=== PATIENT | female | born 1995 | race Hispanic/Latino ===

== ENCOUNTER 2017-11-04 10:31 | Emergency (ER) | payer MEDICAID ==
[2017-11-04 11:11] LABS: HCG,QUAL RESULT NEGATIVE (NEGATIVE)
[2017-11-04 11:13] LABS: APPEARANCE,URINE Clear (CLEAR); BILIRUBIN,URINE Negative (NEGATIVE); COLOR,URINE Yellow (YELLOW); GLUCOSE, URINE (UA) Negative (NEGATIVE); KETONES,URINE Negative (NEGATIVE); LEUKOCYTE ESTERASE ,URINE Moderate (NEGATIVE); NITRATE,URINE Negative (NEGATIVE); OCCULT BLOOD,URINE Trace (NEGATIVE); PROTEIN,URINE Negative (NEGATIVE); UROBILINOGEN,URINE 0.2 mg/dL (0.2-1.0)
[2017-11-04 11:20] LABS: BACTERIA,URINE Rare /HPF (None Seen); RBC,URINE 0-1 /HPF (0-1); SQUAMOUS EPITHELIAL CELL,UR Rare /HPF (0-2)
[2017-11-04] MEDS ORDERED: PHENAZOPYRIDINE HCL 200 MG TABLET ONE (11:52)
== END 2017-11-04 12:03 | disposition home or self-care (01) ==
LOC: EDH 10:31
DX: N39.0 Urinary tract infection, site not specified (principal); R30.0 Dysuria
CPT/HCPCS: 81001; 81025; 87088; 87186

== ENCOUNTER 2018-01-11 10:49 | Emergency (ER) | payer MEDICAID ==
[2018-01-11 11:23] LABS: APPEARANCE,URINE CLEAR (CLEAR); BILIRUBIN,URINE NEGATIVE (NEGATIVE); COLOR,URINE YELLOW (YELLOW); GLUCOSE, URINE (UA) NEGATIVE (NEGATIVE); KETONES,URINE 40 mg/dL (NEGATIVE); LEUKOCYTE ESTERASE ,URINE SMALL (NEGATIVE); NITRATE,URINE NEGATIVE (NEGATIVE); OCCULT BLOOD,URINE TRACE-INTACT (NEGATIVE); PH,URINE 5.5 (5.0-8.0); PROTEIN,URINE TRACE (NEGATIVE); UROBILINOGEN,URINE 0.2 mg/dL (0.2-1.0)
[2018-01-11 11:26] LABS: HCG,QUAL RESULT NEGATIVE (NEGATIVE)
[2018-01-11 11:33] LABS: RBC,URINE 0-1 /HPF (0-1); WBC,URINE 26-50 /HPF (0-1)
[2018-01-11 11:34] LABS: BACTERIA,URINE Moderate /HPF (None Seen)
== END 2018-01-11 11:52 | disposition home or self-care (01) ==
LOC: EDH 10:49
DX: N39.0 Urinary tract infection, site not specified (principal)
CPT/HCPCS: 81001; 81025; 87088; 87186

== ENCOUNTER 2018-07-31 12:47 | Emergency (ER) | payer MEDICAID ==
[2018-07-31] MEDS ORDERED: IBUPROFEN 600 MG TABLET ONE (14:31)
[2018-07-31] MEDS ORDERED: PHENAZOPYRIDINE HCL 200 MG TABLET ONE (14:31)
[2018-07-31 14:53] LABS: BILIRUBIN,URINE Negative (NEGATIVE); COLOR,URINE Yellow (YELLOW); GLUCOSE, URINE (UA) Negative (NEGATIVE); HCG,QUAL RESULT NEGATIVE (NEGATIVE); KETONES,URINE Negative (NEGATIVE); LEUKOCYTE ESTERASE ,URINE Large (NEGATIVE); NITRATE,URINE Negative (NEGATIVE); OCCULT BLOOD,URINE Moderate (NEGATIVE); PH,URINE 6.5 (5.0-8.0); PROTEIN,URINE Negative (NEGATIVE); UROBILINOGEN,URINE 0.2 mg/dL (0.2-1.0)
[2018-07-31 14:54] LABS: APPEARANCE,URINE Cloudy (CLEAR)
[2018-07-31 15:07] LABS: BACTERIA,URINE Rare /HPF (None Seen); RBC,URINE 26-50 /HPF (0-1); WBC,URINE 51-100 /HPF (0-1)
[2018-07-31 15:08] LABS: MUCUS,URINE Moderate LPF (None Seen)
== END 2018-07-31 15:20 | disposition home or self-care (01) ==
LOC: EDH 12:47
DX: N30.00 Acute cystitis without hematuria (principal)
CPT/HCPCS: 81001; 81025

== ENCOUNTER 2019-01-19 10:12 | Emergency (ER) | payer MEDICAID ==
[2019-01-19 10:43] LABS: APPEARANCE,URINE Clear (CLEAR); BILIRUBIN,URINE Negative (NEGATIVE); COLOR,URINE Yellow (YELLOW); GLUCOSE, URINE (UA) Negative (NEGATIVE); KETONES,URINE Negative (NEGATIVE); LEUKOCYTE ESTERASE ,URINE Negative (NEGATIVE); NITRATE,URINE Negative (NEGATIVE); OCCULT BLOOD,URINE Small (NEGATIVE); PROTEIN,URINE Negative (NEGATIVE); UROBILINOGEN,URINE 0.2 mg/dL (0.2-1.0)
[2019-01-19 10:47] LABS: HCG,QUAL RESULT NEGATIVE (NEGATIVE)
[2019-01-19 11:04] LABS: BACTERIA,URINE Few /HPF (None Seen); RBC,URINE 0-1 /HPF (0-1); WBC,URINE 0-1 /HPF (0-1)
== END 2019-01-19 11:17 | disposition home or self-care (01) ==
LOC: EDH 10:12
DX: N92.6 Irregular menstruation, unspecified (principal); Z72.0 Tobacco use
CPT/HCPCS: 81001; 81025

== ENCOUNTER 2019-10-01 19:41 | Emergency (ER) | payer MEDICAID | END 2019-10-01 20:35 | disposition home or self-care (01) | LOC: EDH 19:41 | DX: F41.1 Generalized anxiety disorder (principal) | CPT/HCPCS: 99281 ==

== ENCOUNTER 2019-11-28 18:05 | Emergency (ER) | payer MEDICAID ==
[2019-11-28 18:28] LABS: APPEARANCE,URINE Cloudy (CLEAR); BILIRUBIN,URINE Negative (NEGATIVE); COLOR,URINE Yellow (YELLOW); GLUCOSE, URINE (UA) Negative (NEGATIVE); KETONES,URINE Negative (NEGATIVE); LEUKOCYTE ESTERASE ,URINE Trace (NEGATIVE); NITRATE,URINE Negative (NEGATIVE); OCCULT BLOOD,URINE Negative (NEGATIVE); PH,URINE 6.5 (5.0-8.0); PROTEIN,URINE Negative (NEGATIVE)
[2019-11-28 18:30] LABS: HCG,QUAL RESULT NEGATIVE (NEGATIVE)
[2019-11-28 18:36] LABS: RBC,URINE 0-1 /HPF (0-1)
[2019-11-28 18:37] LABS: BACTERIA,URINE Few /HPF (None Seen); MUCUS,URINE Few LPF (None Seen); SQUAMOUS EPITHELIAL CELL,UR Moderate /HPF (0-2)
== END 2019-11-28 18:57 | disposition home or self-care (01) ==
LOC: EDH 18:05
DX: N39.0 Urinary tract infection, site not specified (principal); B37.3 Candidiasis of vulva and vagina
CPT/HCPCS: 81001; 81025

== ENCOUNTER 2020-01-31 16:17 | Emergency (ER) | payer MEDICAID | END 2020-01-31 19:37 | disposition home or self-care (01) | LOC: EDH 16:17 | DX: Z11.3 Encounter for screening for infections with a predominantly sexual mode of transmission (principal); R35.0 Frequency of micturition; R30.9 Painful micturition, unspecified; R19.7 Diarrhea, unspecified; J02.9 Acute pharyngitis, unspecified; H92.01 Otalgia, right ear ==

== ENCOUNTER 2020-06-25 20:30 | Emergency (ER) | payer MEDICAID ==
[2020-06-25] MEDS ORDERED: KETOROLAC TROMETHAMINE 30MG/ML ONE (20:48)
[2020-06-25] MEDS ORDERED: ACETAMINOPHEN-CODEINE 300/30MG TAB ONE (20:48)
== END 2020-06-25 21:15 | disposition home or self-care (01) ==
LOC: EDH 20:30
DX: S00.432A Contusion of left ear, initial encounter (principal); Y08.89XA Assault by other specified means, initial encounter; Y93.89 Activity, other specified; Y92.89 Other specified places as the place of occurrence of the external cause; Y99.8 Other external cause status
CPT/HCPCS: 81025; 96372; 99283; J1885

== ENCOUNTER 2020-11-25 10:41 | Emergency (ER) | payer MEDICAID ==
[2020-11-25 11:02] LABS: APPEARANCE,URINE Clear (CLEAR); BILIRUBIN,URINE Negative (NEGATIVE); COLOR,URINE Yellow (YELLOW); GLUCOSE, URINE (UA) Negative (NEGATIVE); HCG,QUAL RESULT NEGATIVE (NEGATIVE); KETONES,URINE Negative (NEGATIVE); LEUKOCYTE ESTERASE ,URINE Negative (NEGATIVE); NITRATE,URINE Negative (NEGATIVE); OCCULT BLOOD,URINE Negative (NEGATIVE); PH,URINE 7.5 (5.0-8.0); PROTEIN,URINE Negative (NEGATIVE)
[2020-11-25 11:30] LABS: BASOPHILS % (AUTO) 0.5 % (0.0-5.0); EOSINOPHILS % (AUTO) 1.8 % (0.0-8.0); HEMATOCRIT 38.6 % (36-48); LYMPHOCYTES % (AUTO) 20.3 % (21.0-51.0); MEAN CORPUSCULAR HEMOGLOBIN 27.7 pg (27.0-33.0); MEAN CORPUSCULAR HGB CONC 31.9 g/dL (32.0-36.0); MEAN CORPUSCULAR VOLUME 86.9 fL (79-99); MONOCYTES % (AUTO) 6.5 % (3.0-13.0); NEUTROPHILS % (AUTO) 70.1 % (40.0-77.0); PLATELET COUNT (AUTO) 287 K/uL (130-400); RED BLOOD CELL COUNT(AUTO) 4.44 MIL/uL (4.00-5.50); RED CELL DISTRIBUTION WIDTH 14.6 % (11.0-15.5); WHITE BLOOD COUNT (AUTO) 7.9 K/uL (4.8-10.8)
[2020-11-25 11:43] LABS: ALBUMIN 3.6 g/dL (3.5-5.0); BILIRUBIN,TOTAL 0.1 mg/dL (0.2-1.0); CREATININE 0.6 mg/dL (0.5-1.5); POTASSIUM 3.8 mmol/L (3.5-5.1); TOTAL PROTEIN, SERUM 7.3 g/dL (6.0-8.3)
[2020-11-25 12:27] LABS: AMPHET/METH SCREEN,URINE NEGATIVE (NEGATIVE); BARBITURATE SCREEN, URINE NEGATIVE (NEGATIVE); BENZODIAZEPINES SCREEN,URINE NEGATIVE (NEGATIVE); CANNABINOID SCREEN,URINE POSITIVE (NEGATIVE); COCAINE SCREEN,URINE NEGATIVE (NEGATIVE); OPIATE SCREEN,URINE NEGATIVE (NEGATIVE); PHENCYCLIDINE SCREEN,URINE NEGATIVE (NEGATIVE)
== END 2020-11-25 12:34 | disposition home or self-care (01) ==
LOC: EDH 10:41
DX: R10.2 Pelvic and perineal pain (principal); F12.10 Cannabis abuse, uncomplicated; N92.1 Excessive and frequent menstruation with irregular cycle; E66.9 Obesity, unspecified; Z72.0 Tobacco use
CPT/HCPCS: 36415; 80053; 80305; 81003; 81025; 83690; 85025; 87486; 87797

== ENCOUNTER 2021-03-20 14:53 | Emergency (ER) | payer MEDICAID ==
[~2021-03-20] VITALS: Ht 144.8 cm; Wt 73.5 kg
[2021-03-20 14:55] VITALS: BP 128/72
[2021-03-20 15:26] LABS: BASOPHILS % (AUTO) 0.2 % (0.0-5.0); EOSINOPHILS % (AUTO) 1.7 % (0.0-8.0); HEMATOCRIT 42.9 % (36-48); MEAN CORPUSCULAR HEMOGLOBIN 28.1 pg (27.0-33.0); MEAN CORPUSCULAR HGB CONC 31.7 g/dL (32.0-36.0); MEAN CORPUSCULAR VOLUME 88.6 fL (79-99); MONOCYTES % (AUTO) 6.6 % (3.0-13.0); NEUTROPHILS % (AUTO) 69.1 % (40.0-77.0); PLATELET COUNT (AUTO) 274 K/uL (130-400); RED BLOOD CELL COUNT(AUTO) 4.84 MIL/uL (4.00-5.50); WHITE BLOOD COUNT (AUTO) 8.9 K/uL (4.8-10.8)
[2021-03-20 15:29] LABS: APPEARANCE,URINE Clear (CLEAR); BILIRUBIN,URINE Negative (NEGATIVE); COLOR,URINE Orange (YELLOW); GLUCOSE, URINE (UA) Negative (NEGATIVE); KETONES,URINE 15 mg/dL (NEGATIVE); LEUKOCYTE ESTERASE ,URINE Trace (NEGATIVE); NITRATE,URINE Negative (NEGATIVE); OCCULT BLOOD,URINE Large (NEGATIVE); PROTEIN,URINE POS 1+ mg/dL (NEGATIVE)
[2021-03-20 15:37] LABS: CREATININE 0.6 mg/dL (0.5-1.5); POTASSIUM 3.6 mmol/L (3.5-5.1)
[2021-03-20 15:42] LABS: ALBUMIN 3.8 g/dL (3.5-5.0); BILIRUBIN,TOTAL 0.3 mg/dL (0.2-1.0); TOTAL PROTEIN, SERUM 7.7 g/dL (6.0-8.3)
[2021-03-20] MEDS ORDERED: KETOROLAC 60 MG VIAL (30MG/ML) IM ONE (16:30)
[2021-03-20 16:48] LABS: RBC,URINE 51-100 /HPF (0-1)
[2021-03-20 16:49] LABS: BACTERIA,URINE Few /HPF (None Seen); SQUAMOUS EPITHELIAL CELL,UR 0-2 /HPF (0-2); WBC,URINE 0-1 /HPF (0-1)
[2021-03-20] MEDS ORDERED: ONDA4TAB10 PO (17:04)
[2021-03-20] MEDS ORDERED: DICY20TA2 PO (17:04)
== END 2021-03-20 17:15 | disposition home or self-care (01) ==
LOC: EDH 14:53
DX: K80.20 Calculus of gallbladder without cholecystitis without obstruction (principal); R10.31 Right lower quadrant pain; Z79.899 Other long term (current) drug therapy
CPT/HCPCS: 36415; 74176; 80053; 81001; 83690; 84703; 85025

== ENCOUNTER 2021-05-03 11:52 | Emergency (ER) | payer MEDICAID ==
[~2021-05-03] VITALS: Ht 144.8 cm; Wt 72.6 kg
[~2021-05-03 11:52] MED LIST: DICY20TA2 PO; ONDA4TAB10 PO
[2021-05-03] MEDS ORDERED: FAMOTIDINE 20MG TAB PO ONE (12:30)
[2021-05-03] MEDS ORDERED: DIPHENHYDRAMINE HCL 25 MG CAPSULE PO ONE (12:30)
[2021-05-03] MEDS ORDERED: SOLU-MEDROL 125MG VIAL IM ONE (12:30)
[2021-05-03 13:02] VITALS: BP 124/82
[2021-05-03] MEDS ORDERED: FAMO-136 PO (13:21)
[2021-05-03] MEDS ORDERED: PRED20TA3 PO (13:21)
[2021-05-03] MEDS ORDERED: CETI1SOL17 PO (13:21)
== END 2021-05-03 13:49 | disposition home or self-care (01) ==
LOC: EDH 11:52
DX: L50.9 Urticaria, unspecified (principal); Z88.6 Allergy status to analgesic agent; Z88.5 Allergy status to narcotic agent; Z79.899 Other long term (current) drug therapy; Z98.890 Other specified postprocedural states
CPT/HCPCS: 87880; 96372; 99283; J2930; Q0163

== ENCOUNTER 2021-08-24 14:22 | Emergency (ER) | payer MEDICAID ==
[~2021-08-24] VITALS: Ht 144.8 cm; Wt 68.0 kg
[~2021-08-24 14:22] MED LIST changes: +CETI1SOL17 PO; +FAMO-136 PO; +PRED20TA3 PO
[2021-08-24 15:01] LABS: INFLUENZA TYPE A NEGATIVE FOR TYPE A (NEG); INFLUENZA TYPE B NEGATIVE FOR TYPE B (NEG)
[2021-08-24] MEDS ORDERED: LORA10TA7 PO (15:11)
[2021-08-24] MEDS ORDERED: FLUT16H NASAL (15:11)
[2021-08-24] MEDS ORDERED: IBUP-2091 PO (15:11)
[2021-08-24 15:27] VITALS: BP 124/72
== END 2021-08-24 15:24 | disposition home or self-care (01) ==
LOC: EDH 14:22
DX: U07.1 COVID-19 (principal); E66.9 Obesity, unspecified; Z79.52 Long term (current) use of systemic steroids; Z88.5 Allergy status to narcotic agent; Z68.32 Body mass index [BMI] 32.0-32.9, adult
CPT/HCPCS: 87635; 87804 ×2; 87880; 99283; C9803

== ENCOUNTER 2021-10-15 06:37 | Emergency (ER) | payer MEDICAID ==
[~2021-10-15] VITALS: Ht 144.8 cm; Wt 69.4 kg
[~2021-10-15 06:37] MED LIST changes: +FLUT16H NASAL; +IBUP-2091 PO; +LORA10TA7 PO
[2021-10-15] MEDS ORDERED: HYDROXYZINE 25 MG TABLET PO SCH (07:00)
[2021-10-15] MEDS ORDERED: SOLU-MEDROL 125MG VIAL IM SCH (07:00)
[2021-10-15] MEDS ORDERED: LORATADINE 10 MG TABLET PO SCH (07:00)
[2021-10-15] MEDS ORDERED: METH4TAB3 PO (07:21)
[2021-10-15] MEDS ORDERED: HYD25 PO (07:21)
[2021-10-15 07:34] LABS: APPEARANCE,URINE Turbid (CLEAR); BILIRUBIN,URINE Negative (NEGATIVE); COLOR,URINE Yellow (YELLOW); GLUCOSE, URINE (UA) Negative (NEGATIVE); KETONES,URINE Negative (NEGATIVE); LEUKOCYTE ESTERASE ,URINE Trace (NEGATIVE); NITRATE,URINE Negative (NEGATIVE); OCCULT BLOOD,URINE Negative (NEGATIVE); PROTEIN,URINE Negative (NEGATIVE)
[2021-10-15 07:37] VITALS: BP 115/77
[2021-10-15 07:50] LABS: BACTERIA,URINE Few /HPF (None Seen); RBC,URINE 0-1 /HPF (0-1); WBC,URINE 0-1 /HPF (0-1)
[2021-10-15 07:51] LABS: AMORPHOUS SEDIMENT,UR Moderate /LPF (None Seen); SQUAMOUS EPITHELIAL CELL,UR Few /HPF (0-2)
== END 2021-10-15 08:17 | disposition home or self-care (01) ==
LOC: EDH 06:37
DX: L50.9 Urticaria, unspecified (principal); E66.9 Obesity, unspecified; Z79.1 Long term (current) use of non-steroidal anti-inflammatories (NSAID); Z79.52 Long term (current) use of systemic steroids; Z88.5 Allergy status to narcotic agent; Z68.33 Body mass index [BMI] 33.0-33.9, adult
CPT/HCPCS: 36415; 81001; 81025; 84703; 87486; 87797; 96372; 99283; J2930

== ENCOUNTER 2021-11-08 16:21 | Emergency (ER) | payer MEDICAID ==
[~2021-11-08] VITALS: Ht 144.8 cm; Wt 68.9 kg
[~2021-11-08 16:21] MED LIST changes: +HYD25 PO; +METH4TAB3 PO
[2021-11-08 16:22] VITALS: BP 110/73
[2021-11-08 16:43] LABS: APPEARANCE,URINE Cloudy (CLEAR); BILIRUBIN,URINE Negative (NEGATIVE); COLOR,URINE Dark Yellow (YELLOW); GLUCOSE, URINE (UA) Negative (NEGATIVE); KETONES,URINE Trace mg/dL (NEGATIVE); LEUKOCYTE ESTERASE ,URINE Small (NEGATIVE); NITRATE,URINE Negative (NEGATIVE); OCCULT BLOOD,URINE Negative (NEGATIVE); PH,URINE 7.5 (5.0-8.0); PROTEIN,URINE Trace mg/dL (NEGATIVE)
[2021-11-08 16:51] LABS: BACTERIA,URINE Few /HPF (None Seen); MUCUS,URINE Moderate LPF (None Seen); RBC,URINE 0-1 /HPF (0-1); SQUAMOUS EPITHELIAL CELL,UR Moderate /HPF (0-2)
[2021-11-08] MEDS ORDERED: 0.9%NACL 1000ML 1,000 ML IV ONE (16:55)
[2021-11-08] MEDS ORDERED: PROMETHAZINE HCL 25 MG/ML 1ML AMPULE IM ONE (17:00)
[2021-11-08] MEDS: 0.9%NACL 1000ML 1,000 ML IV SCH ×2 (17:08→17:28)
[2021-11-08] MEDS ORDERED: CEFTRIAXONE 1G VIAL IVP SCH (17:30)
[2021-11-08] MEDS ORDERED: ONDA4TAB10 PO (18:03)
[2021-11-08] MEDS ORDERED: CEPH500B PO (18:03)
[2021-11-08] MEDS ORDERED: PREN-61 PO (18:03)
== END 2021-11-08 18:13 | disposition home or self-care (01) ==
LOC: EDH 16:21
DX: O23.42 Unspecified infection of urinary tract in pregnancy, second trimester (principal); N39.0 Urinary tract infection, site not specified; O98.511 Other viral diseases complicating pregnancy, first trimester; B34.9 Viral infection, unspecified; I95.1 Orthostatic hypotension; E66.9 Obesity, unspecified; Z79.1 Long term (current) use of non-steroidal anti-inflammatories (NSAID); Z79.52 Long term (current) use of systemic steroids; Z88.5 Allergy status to narcotic agent; Z68.32 Body mass index [BMI] 32.0-32.9, adult; Z3A.01 Less than 8 weeks gestation of pregnancy
CPT/HCPCS: 36415; 81001; 84702; 87804 ×2; 96372; 96374; 99284; J0696; J2550; J7030

== ENCOUNTER 2021-12-07 17:02 | Emergency (ER) | payer MEDICAID ==
[~2021-12-07] VITALS: Ht 144.8 cm; Wt 68.9 kg
[~2021-12-07 17:02] MED LIST changes: +CEPH500B PO; +PREN-61 PO
[2021-12-07 17:03] VITALS: BP 129/80
[2021-12-07 17:40] LABS: BASOPHILS % (AUTO) 0.4 % (0.0-5.0); EOSINOPHILS % (AUTO) 1.1 % (0.0-8.0); HEMATOCRIT 37.3 % (36-48); LYMPHOCYTES % (AUTO) 31.5 % (21.0-51.0); MEAN CORPUSCULAR HEMOGLOBIN 27.6 pg (27.0-33.0); MEAN CORPUSCULAR HGB CONC 31.6 g/dL (32.0-36.0); MEAN CORPUSCULAR VOLUME 87.4 fL (79-99); MONOCYTES % (AUTO) 6.8 % (3.0-13.0); NEUTROPHILS % (AUTO) 59.7 % (40.0-77.0); PLATELET COUNT (AUTO) 329 K/uL (130-400); RED BLOOD CELL COUNT(AUTO) 4.27 MIL/uL (4.00-5.50); RED CELL DISTRIBUTION WIDTH 14.6 % (11.0-15.5)
[2021-12-07 17:53] LABS: CREATININE 0.7 mg/dL (0.5-1.5); POTASSIUM 3.6 mmol/L (3.5-5.1)
[2021-12-07 17:57] LABS: ALBUMIN 3.5 g/dL (3.5-5.0); BILIRUBIN,TOTAL 0.3 mg/dL (0.2-1.0); TOTAL PROTEIN, SERUM 7.1 g/dL (6.0-8.3)
[2021-12-07] MEDS ORDERED: ONDA-104 PO (18:21)
== END 2021-12-07 18:27 | disposition home or self-care (01) ==
LOC: EDH 17:02
DX: R11.0 Nausea (principal); Z32.02 Encounter for pregnancy test, result negative; E66.9 Obesity, unspecified; Z98.890 Other specified postprocedural states; Z88.5 Allergy status to narcotic agent; Z88.6 Allergy status to analgesic agent; Z79.899 Other long term (current) drug therapy
CPT/HCPCS: 36415; 80053; 84702; 85025

== ENCOUNTER 2022-01-31 18:14 | Emergency (ER) | payer MEDICAID ==
[~2022-01-31] VITALS: Ht 144.8 cm; Wt 69.9 kg
[~2022-01-31 18:14] MED LIST changes: +ONDA-104 PO
[2022-01-31 19:29] LABS: APPEARANCE,URINE Cloudy (CLEAR); BILIRUBIN,URINE Negative (NEGATIVE); COLOR,URINE Yellow (YELLOW); GLUCOSE, URINE (UA) Negative (NEGATIVE); KETONES,URINE Trace mg/dL (NEGATIVE); LEUKOCYTE ESTERASE ,URINE Trace (NEGATIVE); NITRATE,URINE Negative (NEGATIVE); OCCULT BLOOD,URINE Negative (NEGATIVE); PH,URINE 8.5 (5.0-8.0); PROTEIN,URINE POS 1+ mg/dL (NEGATIVE)
[2022-01-31 19:40] LABS: HCG,QUAL RESULT NEGATIVE (NEGATIVE)
[2022-01-31 19:51] VITALS: BP 124/68
[2022-01-31 19:54] LABS: RBC,URINE 0-1 /HPF (0-1)
[2022-01-31 19:55] LABS: BACTERIA,URINE Few /HPF (None Seen); MUCUS,URINE Moderate LPF (None Seen); SQUAMOUS EPITHELIAL CELL,UR Moderate /HPF (0-2)
== END 2022-01-31 20:01 | disposition home or self-care (01) ==
LOC: EDH 18:14
DX: R30.0 Dysuria (principal); Z88.6 Allergy status to analgesic agent; Z88.5 Allergy status to narcotic agent; Z79.899 Other long term (current) drug therapy; Z98.890 Other specified postprocedural states
CPT/HCPCS: 81001; 81025

== ENCOUNTER 2022-03-16 14:13 | Emergency (ER) | payer MEDICAID ==
[~2022-03-16] VITALS: Ht 144.8 cm; Wt 68.9 kg
[2022-03-16] MEDS ORDERED: IBUPROFEN 600 MG TABLET PO ONE (14:30)
[2022-03-16 15:53] LABS: APPEARANCE,URINE CLOUDY (CLEAR); BILIRUBIN,URINE NEGATIVE (NEGATIVE); COLOR,URINE YELLOW (YELLOW); GLUCOSE, URINE (UA) NEGATIVE (NEGATIVE); KETONES,URINE NEGATIVE (NEGATIVE); LEUKOCYTE ESTERASE ,URINE NEGATIVE (NEGATIVE); NITRATE,URINE NEGATIVE (NEGATIVE); OCCULT BLOOD,URINE MODERATE (NEGATIVE); PROTEIN,URINE NEGATIVE (NEGATIVE); UROBILINOGEN,URINE 0.2 mg/dL (0.2-1.0)
[2022-03-16 16:05] LABS: HCG,QUALITATIVE URINE NEGATIVE (NEGATIVE)
[2022-03-16] MEDS ORDERED: IBUP-2070 PO (16:25)
[2022-03-16 16:32] VITALS: BP 122/75
[2022-03-16 17:04] LABS: AMORPHOUS SEDIMENT,UR Moderate /LPF (None Seen); BACTERIA,URINE Few /HPF (None Seen); RBC,URINE 0-1 /HPF (0-1); SQUAMOUS EPITHELIAL CELL,UR Rare /HPF (0-2); WBC,URINE 0-1 /HPF (0-1)
== END 2022-03-16 16:31 | disposition home or self-care (01) ==
LOC: EDH 14:13
DX: J02.9 Acute pharyngitis, unspecified (principal); R50.9 Fever, unspecified; M79.10 Myalgia, unspecified site; Z20.822 Contact with and (suspected) exposure to COVID-19; Z79.899 Other long term (current) drug therapy
CPT/HCPCS: 99283; 87635; 87880; 87804 ×2; 81001; 81025; C9803

== ENCOUNTER 2022-05-14 17:46 | Emergency (ER) | payer MEDICAID ==
[~2022-05-14] VITALS: Ht 144.8 cm; Wt 68.0 kg
[~2022-05-14 17:46] MED LIST changes: +IBUP-2070 PO
[2022-05-14 18:35] LABS: APPEARANCE,URINE CLOUDY (CLEAR); BILIRUBIN,URINE MODERATE mg/dL (NEGATIVE); COLOR,URINE ORANGE (YELLOW); GLUCOSE, URINE (UA) NEGATIVE (NEGATIVE); KETONES,URINE 15 mg/dL (NEGATIVE); LEUKOCYTE ESTERASE ,URINE MODERATE Leu/uL (NEGATIVE); NITRATE,URINE POSITIVE (NEGATIVE); OCCULT BLOOD,URINE MODERATE (NEGATIVE); PROTEIN,URINE >=300 mg/dL (NEGATIVE)
[2022-05-14 18:40] LABS: BACTERIA,URINE Few /HPF (None Seen); RBC,URINE >100 /HPF (0-1); SQUAMOUS EPITHELIAL CELL,UR Few /HPF (0-2)
[2022-05-14 18:45] LABS: BASOPHILS % (AUTO) 0.1 % (0.0-5.0); EOSINOPHILS % (AUTO) 0.5 % (0.0-8.0); HEMATOCRIT 35.8 % (36-48); MEAN CORPUSCULAR HEMOGLOBIN 25.2 pg (27.0-33.0); MEAN CORPUSCULAR HGB CONC 32.4 g/dL (32.0-36.0); MEAN CORPUSCULAR VOLUME 77.7 fL (79-99); MONOCYTES % (AUTO) 6.6 % (3.0-13.0); NEUTROPHILS % (AUTO) 75.4 % (40.0-77.0); PLATELET COUNT (AUTO) 336 K/uL (130-400); RED BLOOD CELL COUNT(AUTO) 4.61 MIL/uL (4.00-5.50); RED CELL DISTRIBUTION WIDTH 15.4 % (11.0-15.5); WHITE BLOOD COUNT (AUTO) 9.4 K/uL (4.8-10.8)
[2022-05-14 18:53] LABS: CREATININE 0.6 mg/dL (0.5-1.5); POTASSIUM 3.6 mmol/L (3.5-5.1)
[2022-05-14] MEDS ORDERED: CEFTRIAXONE 1G VIAL ONE (18:53)
[2022-05-14] MEDS ORDERED: PHENAZOPYRIDINE HCL 200 MG TABLET ONE (18:53)
[2022-05-14] MEDS ORDERED: PHENAZOPYRIDINE HCL 200 MG TABLET PO ONE (19:00)
[2022-05-14] MEDS ORDERED: CEFTRIAXONE 1G VIAL IM ONE (19:00)
[2022-05-14 19:20] LABS: ALBUMIN 3.6 g/dL (3.5-5.0); TOTAL PROTEIN, SERUM 7.8 g/dL (6.0-8.3)
[2022-05-14] MEDS ORDERED: CEPH500B PO (19:46)
[2022-05-14] MEDS ORDERED: PHEN-847 PO (19:46)
[2022-05-14 19:54] VITALS: BP 126/85
== END 2022-05-14 19:55 | disposition home or self-care (01) ==
LOC: EDH 17:46
DX: O20.0 Threatened abortion (principal); N39.0 Urinary tract infection, site not specified; Z88.5 Allergy status to narcotic agent; Z79.899 Other long term (current) drug therapy; Z98.890 Other specified postprocedural states; Z3A.01 Less than 8 weeks gestation of pregnancy
CPT/HCPCS: 99284; 76801; 80053; 84702; 85025; 86900; 86901; 87088; 81001; 36415; 96372; J0696

== ENCOUNTER 2022-08-11 08:06 | Emergency (ER) | payer MEDICAID ==
[~2022-08-11] VITALS: Ht 144.8 cm; Wt 68.9 kg
[~2022-08-11 08:06] MED LIST changes: +PHEN-847 PO
[2022-08-11 08:13] VITALS: BP 133/91
[2022-08-11] MEDS ORDERED: NAPR375T6 PO (08:15)
[2022-08-11] MEDS ORDERED: NAPROXEN 250 MG TAB PO ONE (08:30)
== END 2022-08-11 08:34 | disposition home or self-care (01) ==
LOC: EDH 08:06
DX: H92.01 Otalgia, right ear (principal); Z88.5 Allergy status to narcotic agent; Z79.1 Long term (current) use of non-steroidal anti-inflammatories (NSAID); Z79.52 Long term (current) use of systemic steroids; Z79.899 Other long term (current) drug therapy

== ENCOUNTER 2022-08-28 10:14 | Emergency (ER) | payer MEDICAID ==
[~2022-08-28] VITALS: Ht 157.5 cm; Wt 68.9 kg
[~2022-08-28 10:14] MED LIST changes: +NAPR375T6 PO
[2022-08-28] MEDS ORDERED: VALA10002 PO (11:19)
[2022-08-28] MEDS ORDERED: AZITHROMYCIN 250 MG TABLET PO ONE (11:30)
[2022-08-28] MEDS ORDERED: METRONIDAZOLE 500 MG TABLET PO SCH (11:30)
[2022-08-28] MEDS ORDERED: CEFTRIAXONE 1G VIAL IM ONE (11:30)
[2022-08-28 12:15] VITALS: BP 126/78
== END 2022-08-28 12:50 | disposition home or self-care (01) ==
LOC: EDH 10:14
DX: B00.1 Herpesviral vesicular dermatitis (principal); E66.9 Obesity, unspecified; Z88.5 Allergy status to narcotic agent; Z79.899 Other long term (current) drug therapy; Z20.2 Contact with and (suspected) exposure to infections with a predominantly sexual mode of transmission
CPT/HCPCS: 99283; 87797; 87486; 81025; 96372; J0696

== ENCOUNTER 2022-09-20 19:36 | Emergency (ER) | payer MEDICAID ==
[~2022-09-20] VITALS: Ht 149.9 cm; Wt 72.3 kg
[~2022-09-20 19:36] MED LIST changes: +VALA10002 PO
[2022-09-20 20:25] VITALS: BP 145/78
[2022-09-20] MEDS ORDERED: KETOROLAC 30MG VIAL (30MG/ML) IM ONE (21:30)
== END 2022-09-20 22:10 | disposition home or self-care (01) ==
LOC: EDH 19:36
DX: S02.5XXA Fracture of tooth (traumatic), initial encounter for closed fracture (principal); E66.9 Obesity, unspecified; Z88.5 Allergy status to narcotic agent; Z98.890 Other specified postprocedural states; Z79.899 Other long term (current) drug therapy; X58.XXXA Exposure to other specified factors, initial encounter; Y93.89 Activity, other specified; Y92.89 Other specified places as the place of occurrence of the external cause; Y99.8 Other external cause status
CPT/HCPCS: 99283; 96372; J1885

== ENCOUNTER 2023-01-09 10:51 | Emergency (ER) | payer MEDICAID ==
[~2023-01-09] VITALS: Ht 144.8 cm; Wt 68.9 kg
[2023-01-09 10:52] VITALS: BP 119/71
[2023-01-09 11:35] LABS: APPEARANCE,URINE CLOUDY (CLEAR); BILIRUBIN,URINE NEGATIVE (NEGATIVE); COLOR,URINE LIGHT-YELLOW (YELLOW); GLUCOSE, URINE (UA) NEGATIVE (NEGATIVE); KETONES,URINE 10 mg/dL (NEGATIVE); LEUKOCYTE ESTERASE ,URINE 500 Leu/uL (NEGATIVE); NITRATE,URINE NEGATIVE (NEGATIVE); OCCULT BLOOD,URINE NEGATIVE (NEGATIVE); PROTEIN,URINE NEGATIVE (NEGATIVE); UROBILINOGEN,URINE 0.2 mg/dL (0.2-1.0)
[2023-01-09 11:37] LABS: BACTERIA,URINE RARE /HPF (None Seen); MUCUS,URINE RARE LPF (None Seen); RBC,URINE 0-1 /HPF (0-1); SQUAMOUS EPITHELIAL CELL,UR FEW /HPF (0-2)
[2023-01-09 11:40] LABS: HCG,QUALITATIVE URINE POSITIVE (NEGATIVE)
[2023-01-09] MEDS ORDERED: CEFTRIAXONE 1G VIAL IM ONE (13:00)
[2023-01-09 13:12] LABS: BASOPHILS % (AUTO) 0.5 % (0.0-5.0); EOSINOPHILS % (AUTO) 0.9 % (0.0-8.0); HEMATOCRIT 34.1 % (36-48); LYMPHOCYTES % (AUTO) 21.6 % (21.0-51.0); MEAN CORPUSCULAR HEMOGLOBIN 23.9 pg (27.0-33.0); MEAN CORPUSCULAR HGB CONC 30.5 g/dL (32.0-36.0); MEAN CORPUSCULAR VOLUME 78.4 fL (79-99); MONOCYTES % (AUTO) 6.1 % (3.0-13.0); NEUTROPHILS % (AUTO) 70.4 % (40.0-77.0); PLATELET COUNT (AUTO) 385 K/uL (130-400); RED BLOOD CELL COUNT(AUTO) 4.35 MIL/uL (4.00-5.50); RED CELL DISTRIBUTION WIDTH 16.8 % (11.0-15.5); WHITE BLOOD COUNT (AUTO) 9.8 K/uL (4.8-10.8)
[2023-01-09 13:20] LABS: CREATININE 0.6 mg/dL (0.5-1.5); POTASSIUM 3.3 mmol/L (3.5-5.1)
[2023-01-09 13:25] LABS: TOTAL PROTEIN, SERUM 7.8 g/dL (6.0-8.3)
[2023-01-09] MEDS ORDERED: CEPH500B PO (14:42)
== END 2023-01-09 15:28 | disposition home or self-care (01) ==
LOC: EDH 10:51
DX: N39.0 Urinary tract infection, site not specified (principal); O23.41 Unspecified infection of urinary tract in pregnancy, first trimester; E66.9 Obesity, unspecified; Z79.52 Long term (current) use of systemic steroids; Z88.5 Allergy status to narcotic agent; Z3A.01 Less than 8 weeks gestation of pregnancy
CPT/HCPCS: 99285; 76801; 80053; 84702; 85025; 86900; 86901; 87088; 81001; 81025; 36415; 96372; J0696

== ENCOUNTER 2023-02-21 21:13 | Emergency (ER) | payer MEDICAID ==
[~2023-02-21] VITALS: Ht 152.4 cm; Wt 62.1 kg
[~2023-02-21 21:13] MED LIST changes: -CETI1SOL17 PO; +CORTSOL AD; -DICY20TA2 PO; -FAMO-136 PO; -FLUT16H NASAL; -HYD25 PO; -IBUP-2091 PO; -LORA10TA7 PO; -METH4TAB3 PO; -ONDA-104 PO; -ONDA4TAB10 PO; -PRED20TA3 PO; -PREN-61 PO
[2023-02-21 21:24] VITALS: BP 105/66; PULSE 70; RESP 18
== END 2023-02-22 00:37 | disposition left against medical advice (07) ==
LOC: EDH 21:13
DX: R10.9 Unspecified abdominal pain (principal); Z53.21 Procedure and treatment not carried out due to patient leaving prior to being seen by health care provider
CPT/HCPCS: 99281

== ENCOUNTER 2023-02-22 17:56 | Emergency (ER) | payer MEDICAID ==
[~2023-02-22] VITALS: Ht 152.4 cm; Wt 61.7 kg
[2023-02-22 18:28] VITALS: BP 112/64; PULSE 80; RESP 18
== END 2023-02-22 20:21 | disposition left against medical advice (07) ==
LOC: EDH 17:56
DX: O26.891 Other specified pregnancy related conditions, first trimester (principal); R10.9 Unspecified abdominal pain; Z53.21 Procedure and treatment not carried out due to patient leaving prior to being seen by health care provider
CPT/HCPCS: 99281

== ENCOUNTER 2023-04-07 20:02 | Emergency (ER) | payer MEDICAID ==
[~2023-04-07] VITALS: Ht 152.4 cm; Wt 68.0 kg
[2023-04-07 21:51] LABS: ADD UA MICROSCOPIC NO; APPEARANCE,URINE TURBID (CLEAR); BILIRUBIN,URINE NEGATIVE (NEGATIVE); COLOR,URINE LIGHT-ORANGE (YELLOW); GLUCOSE, URINE (UA) NEGATIVE (NEGATIVE); KETONES,URINE NEGATIVE (NEGATIVE); LEUKOCYTE ESTERASE ,URINE NEGATIVE Leu/uL (NEGATIVE); NITRATE,URINE NEGATIVE (NEGATIVE); OCCULT BLOOD,URINE NEGATIVE (NEGATIVE); PH,URINE 7.5 (5.0-8.0); PROTEIN,URINE NEGATIVE (NEGATIVE); UROBILINOGEN,URINE 0.2 mg/dL (0.2-1.0)
[2023-04-07 23:40] VITALS: BP 116/60; PULSE 75; RESP 18; O2SAT 99
== END 2023-04-07 23:43 | disposition home or self-care (01) ==
LOC: EDH 20:02
DX: O26.892 Other specified pregnancy related conditions, second trimester (principal); R10.9 Unspecified abdominal pain; Z3A.16 16 weeks gestation of pregnancy; Z88.5 Allergy status to narcotic agent
CPT/HCPCS: 76805; 81003

== ENCOUNTER 2023-04-15 23:52 | Emergency (ER) | payer MEDICAID ==
[~2023-04-15] VITALS: Ht 152.4 cm; Wt 68.0 kg
[2023-04-16] MEDS ORDERED: 0.9%NACL 1000ML 1,000 ML IV ONE (00:30)
[2023-04-16] MEDS ORDERED: DiphenhydrAMINE HCL 50 MG/ML VIAL IV ONE (00:30)
[2023-04-16] MEDS ORDERED: KETOROLAC 30MG VIAL (30MG/ML) IVP ONE (00:30)
[2023-04-16 00:48] LABS: APPEARANCE,URINE CLOUDY (CLEAR); BILIRUBIN,URINE NEGATIVE (NEGATIVE); COLOR,URINE LIGHT-YELLOW (YELLOW); GLUCOSE, URINE (UA) NEGATIVE (NEGATIVE); KETONES,URINE 10 mg/dL (NEGATIVE); LEUKOCYTE ESTERASE ,URINE NEGATIVE Leu/uL (NEGATIVE); NITRATE,URINE NEGATIVE (NEGATIVE); OCCULT BLOOD,URINE NEGATIVE (NEGATIVE); PH,URINE 6.5 (5.0-8.0); PROTEIN,URINE NEGATIVE (NEGATIVE); UROBILINOGEN,URINE 0.2 mg/dL (0.2-1.0)
[2023-04-16 00:50] LABS: CREATININE 0.4 mg/dL (0.5-1.5); POTASSIUM 3.7 mmol/L (3.5-5.1)
[2023-04-16 00:52] LABS: ADD UA MICROSCOPIC YES
[2023-04-16 00:53] LABS: BACTERIA,URINE RARE /HPF (None Seen); MUCUS,URINE RARE LPF (None Seen); RBC,URINE 0-1 /HPF (0-1); SQUAMOUS EPITHELIAL CELL,UR MANY /HPF (0-2); WBC,URINE 0-1 /HPF (0-1)
[2023-04-16 00:54] LABS: ALBUMIN 2.9 g/dL (3.5-5.0); BASOPHILS # (AUTO) 0.02 K/uL (0.00-0.20); BASOPHILS % (AUTO) 0.2 % (0.0-5.0); BILIRUBIN,TOTAL 0.2 mg/dL (0.2-1.0); EOSINOPHILS # (AUTO) 0.04 K/uL (0.00-0.70); EOSINOPHILS % (AUTO) 0.5 % (0.0-8.0); HEMATOCRIT 32.1 % (36-48); LYMPHOCYTES # (AUTO) 0.7 K/uL (1.0-4.8); LYMPHOCYTES % (AUTO) 8.8 % (21.0-51.0); MEAN CORPUSCULAR HGB CONC 32.1 g/dL (32.0-36.0); MEAN CORPUSCULAR VOLUME 77.9 fL (79-99); MONOCYTES # (AUTO) 0.4 K/uL (0.1-1.0); MONOCYTES % (AUTO) 5.1 % (3.0-13.0); NEUTROPHILS # (AUTO) 6.9 K/uL (1.8-7.7); NEUTROPHILS % (AUTO) 84.2 % (40.0-77.0); PLATELET COUNT (AUTO) 289 K/uL (130-400); RED BLOOD CELL COUNT(AUTO) 4.12 MIL/uL (4.00-5.50); RED CELL DISTRIBUTION WIDTH 16.8 % (11.0-15.5); TOTAL PROTEIN, SERUM 6.8 g/dL (6.0-8.3); WHITE BLOOD COUNT (AUTO) 8.3 K/uL (4.8-10.8)
[2023-04-16 00:56] LABS: SARS-CoV-2, RNA, NAAT POSITIVE SARS CoV-2 (NEGATIVE)
[2023-04-16 01:04] LABS: INFLUENZA TYPE A Negative For Type A (NEGATIVE); INFLUENZA TYPE B Negative For Type B (NEGATIVE)
[2023-04-16] MEDS ORDERED: DIPH50 PO (01:45)
[2023-04-16] MEDS ORDERED: ALBUHFA IH (01:45)
[2023-04-16] MEDS ORDERED: ACET-66 PO (01:45)
[2023-04-16 02:04] VITALS: BP 106/76; PULSE 92; RESP 18; O2SAT 100
[2023-04-16] MEDS ORDERED: ACETAMINOPHEN 500 MG TABLET ONE (02:08)
== END 2023-04-16 02:29 | disposition home or self-care (01) ==
LOC: EDH 23:52
DX: O98.512 Other viral diseases complicating pregnancy, second trimester (principal); U07.1 COVID-19; Z3A.17 17 weeks gestation of pregnancy; Z79.624 Long term (current) use of inhibitors of nucleotide synthesis; Z88.5 Allergy status to narcotic agent
CPT/HCPCS: 99285; 87635; 80053; 84703; 85025; 87880; 87804 ×2; 81001; 36415; 96374; 76801; 96361; C9803; J1200; J7030

== ENCOUNTER 2023-05-12 10:08 | Emergency (ER) | payer MEDICAID ==
[~2023-05-12 10:08] MED LIST changes: +ACET-66 PO; +ALBUHFA IH; +DIPH50 PO
[2023-05-12 10:16] VITALS: BP 110/70; PULSE 72; RESP 14; O2SAT 99
[2023-05-12 10:31] LABS: APPEARANCE,URINE CLEAR (CLEAR); BILIRUBIN,URINE NEGATIVE (NEGATIVE); COLOR,URINE LIGHT-YELLOW (YELLOW); GLUCOSE, URINE (UA) NEGATIVE (NEGATIVE); KETONES,URINE NEGATIVE (NEGATIVE); LEUKOCYTE ESTERASE ,URINE NEGATIVE Leu/uL (NEGATIVE); NITRATE,URINE NEGATIVE (NEGATIVE); OCCULT BLOOD,URINE NEGATIVE (NEGATIVE); PROTEIN,URINE NEGATIVE (NEGATIVE); UROBILINOGEN,URINE 0.2 mg/dL (0.2-1.0)
[2023-05-12 10:35] LABS: ADD UA MICROSCOPIC NO
[2023-05-12] MEDS ORDERED: CEPH500B PO (11:27)
[2023-05-12] MEDS ORDERED: CLOT15CR23 VG (11:27)
[2023-05-12] MEDS ORDERED: CEFTRIAXONE 1G VIAL IM ONE (11:30)
== END 2023-05-12 12:08 | disposition home or self-care (01) ==
LOC: EDH 10:08
DX: O26.892 Other specified pregnancy related conditions, second trimester (principal); R30.0 Dysuria; O23.42 Unspecified infection of urinary tract in pregnancy, second trimester; N39.0 Urinary tract infection, site not specified; O23.592 Infection of other part of genital tract in pregnancy, second trimester; B37.31 Acute candidiasis of vulva and vagina; Z3A.20 20 weeks gestation of pregnancy; Z79.624 Long term (current) use of inhibitors of nucleotide synthesis; Z88.5 Allergy status to narcotic agent
CPT/HCPCS: 99283; 81003; 81025; 96372; J0696

== ENCOUNTER 2023-06-10 09:46 | Observation (INO) | payer MEDICAID ==
[~2023-06-10] VITALS: Ht 152.4 cm; Wt 68.0 kg
[~2023-06-10 09:46] MED LIST changes: +CLOT15CR23 VG
[2023-06-10 09:47] VITALS: BP 109/68; PULSE 80; RESP 17
[2023-06-10 10:22] LABS: RAPID GROUP A STREP negative (NEGATIVE)
[2023-06-10 10:26] LABS: SARS-CoV-2, RNA, NAAT NEGATIVE SARS CoV-2 (NEGATIVE)
[2023-06-10 10:35] LABS: ADD UA MICROSCOPIC YES; INFLUENZA TYPE A Negative For Type A (NEGATIVE); INFLUENZA TYPE B Negative For Type B (NEGATIVE)
[2023-06-10 10:39] LABS: APPEARANCE,URINE CLEAR (CLEAR); BILIRUBIN,URINE NEGATIVE (NEGATIVE); COLOR,URINE LIGHT-YELLOW (YELLOW); GLUCOSE, URINE (UA) NEGATIVE (NEGATIVE); KETONES,URINE NEGATIVE (NEGATIVE); LEUKOCYTE ESTERASE ,URINE NEGATIVE Leu/uL (NEGATIVE); MUCUS,URINE RARE LPF (None Seen); NITRATE,URINE NEGATIVE (NEGATIVE); OCCULT BLOOD,URINE NEGATIVE (NEGATIVE); PH,URINE 6.5 (5.0-8.0); PROTEIN,URINE NEGATIVE (NEGATIVE); RBC,URINE 0-1 /HPF (0-1); SQUAMOUS EPITHELIAL CELL,UR RARE /HPF (0-2); UROBILINOGEN,URINE 0.2 mg/dL (0.2-1.0); WBC,URINE 0-1 /HPF (0-1)
== END 2023-06-10 12:30 | disposition home or self-care (01) ==
LOC: EDH 09:46 → LDH 09:47
PROVIDERS: ADMIT Obstetrics & Gynecology; ATTEND Obstetrics & Gynecology
DX: O26.892 Other specified pregnancy related conditions, second trimester (principal); R30.0 Dysuria; Z20.822 Contact with and (suspected) exposure to COVID-19; O34.62 Maternal care for abnormality of vagina, second trimester; N89.8 Other specified noninflammatory disorders of vagina; O99.512 Diseases of the respiratory system complicating pregnancy, second trimester; J02.9 Acute pharyngitis, unspecified; O34.82 Maternal care for other abnormalities of pelvic organs, second trimester; N83.209 Unspecified ovarian cyst, unspecified side; O99.212 Obesity complicating pregnancy, second trimester; E66.9 Obesity, unspecified; Z3A.25 25 weeks gestation of pregnancy
CPT/HCPCS: 99284; 87635; 87880; 87804 ×2; 87797; 87486; 81001; G0378; C9803

== ENCOUNTER 2023-07-16 11:49 | Emergency (ER) | payer MEDICAID, OTHER ==
[~2023-07-16] VITALS: Ht 152.4 cm; Wt 72.6 kg
[2023-07-16 11:54] VITALS: BP 115/71; PULSE 87; RESP 16
[2023-07-16 12:49] LABS: SARS-CoV-2, RNA, NAAT NEGATIVE SARS CoV-2 (NEGATIVE)
[2023-07-16 13:00] LABS: INFLUENZA TYPE A Negative For Type A (NEGATIVE); INFLUENZA TYPE B Negative For Type B (NEGATIVE)
[2023-07-16 13:15] LABS: RAPID GROUP A STREP NEGATIVE (NEGATIVE)
== END 2023-07-16 14:01 | disposition home or self-care (01) ==
LOC: EDH 11:49
DX: O99.513 Diseases of the respiratory system complicating pregnancy, third trimester (principal); J00 Acute nasopharyngitis [common cold]; Z3A.30 30 weeks gestation of pregnancy; Z79.899 Other long term (current) drug therapy; Z20.822 Contact with and (suspected) exposure to COVID-19; Z98.890 Other specified postprocedural states; Z88.5 Allergy status to narcotic agent
CPT/HCPCS: 99283; 87635; 87880; 87804 ×2; C9803

== ENCOUNTER 2023-10-12 09:40 | Emergency (ER) | payer MEDICAID, OTHER ==
[~2023-10-12] VITALS: Ht 152.4 cm; Wt 68.9 kg
[2023-10-12 11:27] LABS: SARS-CoV-2, RNA, NAAT NEGATIVE SARS CoV-2 (NEGATIVE)
[2023-10-12 11:32] LABS: INFLUENZA TYPE A Negative For Type A (NEGATIVE); INFLUENZA TYPE B Negative For Type B (NEGATIVE)
[2023-10-12 11:34] LABS: RAPID GROUP A STREP positive (NEGATIVE)
[2023-10-12] MEDS: ACETAMINOPHEN 500 MG TABLET PO ONE (11:49)
[2023-10-12] MEDS ORDERED: AMOX1TAB16 PO (11:53)
[2023-10-12 12:19] VITALS: BP 110/69; PULSE 87; RESP 17; O2SAT 98
== END 2023-10-12 13:07 | disposition home or self-care (01) ==
LOC: EDH 09:40
DX: J03.00 Acute streptococcal tonsillitis, unspecified (principal); E66.9 Obesity, unspecified; Z20.822 Contact with and (suspected) exposure to COVID-19; Z79.899 Other long term (current) drug therapy; Z98.890 Other specified postprocedural states; Z88.5 Allergy status to narcotic agent
CPT/HCPCS: 87635; 87804; 87880

== ENCOUNTER 2024-06-25 09:05 | Emergency (ER) | payer MEDICAID ==
[~2024-06-25] VITALS: Ht 152.4 cm; Wt 64.4 kg
[~2024-06-25 09:05] MED LIST changes: +AMOX1TAB16 PO; +NAPR-1505 PO; -NAPR375T6 PO
--- NOTE | 2024-06-25 09:12 | NUR ---
PT REPORTS ITCHING YET NO HIVES AT THIS TIME NOTED
[2024-06-25] MEDS ORDERED: PRED20TA3 PO (09:28)
--- NOTE | 2024-06-25 09:29 | ERN ---
General Chief Complaint: Allergic Reaction Stated Complaint: HIVES Time Seen by MD: 09:06 History of Present Illness Initial Comments Otherwise healthy 29-year-old female who presents for itching and rash. She reports she developed hives throughout her body last night. Unknown allergen. No respiratory distress shortness of breath vomiting or other symptoms. She has no medical or surgical history. Her was recently diagnosed with a scarlet a forearm rash so she was concerned about a strep infection. She denies sore throat or fever Allergies: Coded Allergies: codeine (Unverified Allergy, Unknown, 05/03/21) Home Meds Active Scripts Amoxicillin/Potassium Clav (Amox Tr-K Clv 875-125 mg Tab) 875 Mg-125 Mg Tablet, 1 EACH PO BID for 10 Days, #20 TAB 0 Refills Prov:MARTINA RAMIREZ [employer] 10/12/23 Cephalexin Monohydrate (Keflex) 500 Mg Cap, 500 MG PO TID for 7 Days, #21 CAP 0 Refills Prov:ARTURO RAMIREZ 05/12/23 Clotrimazole (Clotrimazole) 1 % Cream..g., 1 CARLOS VG DAILY for 7 Days, #7 CARLOS 0 Refills Prov:ARTURO RAMIREZ 05/12/23 Albuterol Sulfate (Ventolin Hfa/Proventil Hfa/Proair Hfa) 90 Mcg Puff, 1-2 PUFF IH Q4H PRN for SHORTNESS OF BREATH for 5 Days, #1 INH 0 Refills PHARMACY TO DISPENSE 1 INHALER FOR USE Prov:ARMIDA QUINN MD 04/16/23 Diphenhydramine HCl (Benadryl) 50 Mg Cap, 50 MG PO Q6HPRN PRN for congestion, #15 CAP Prov:ARMIDA QUINN MD 04/16/23 Acetaminophen (Tylenol) 500 Mg Tab, 1000 MG PO Q6HPRN PRN for fever/pain, #30 TAB Prov:ARMIDA QUINN MD 04/16/23 Cephalexin Monohydrate (Keflex) 500 Mg Cap, 500 MG PO TID for 10 Days, #30 CAP Prov:NBA SPRING [facility] [employer] 02/18/23 Neomy Sulf/Polymyx B Sulf/Hc (Cortisporin Otic Soln) 20 Drop/Ml Otsol, 4 DROP AD TID for 10 Days, #1 BOTTLE Prov:NBA SPRING [facility] [employer] 02/18/23 Cephalexin Monohydrate (Keflex) 500 Mg Cap, 500 MG PO [id number] for 10 Days, #40 CAP Prov:EDIE COTTRELL NP 01/09/23 Valacyclovir HCl (Valtrex) 1,000 Mg Tablet, 1000 MG PO TID for 7 Days, #21 TAB 1 Refill Prov:AMELIA DURANT MD 08/28/22 Naproxen (Naproxen) 375 Mg Tablet.dr, 375 MG PO BID for 7 Days, #14 TAB Prov:HERB NUNEZ MD 08/11/22 Phenazopyridine HCl (Pyridium) 200 Mg Tab, 200 MG PO TIDPC for 3 Days, #9 TAB TAKE WITH FOOD TO PREVENT STOMACH UPSET. Prov:LUCY MONTIEL 05/14/22 Cephalexin Monohydrate (Keflex) 500 Mg Cap, 500 MG PO TID for 7 Days, #21 CAP Prov:LUCY MONTIEL 05/14/22 Ibuprofen (Ibuprofen) 600 Mg Tablet, 600 MG PO Q6H PRN for PAIN, #15 TAB Prov:POLLY DIEGO [facility] [employer] 03/16/22 Past Medical History Past Medical History: No Pertinent History Medical History Other: Ovarian cyst, obesity Past Surgical History: None Surgical History Other: OVARIAN CYST Family History Family History: Negative Social History Social History: Negative, Lives with family Female( History) History: Not Applicable LMP: Jun 14, 2024 : 4 Para: 2 Aborts: 2 ROS Dictation CONSTITUTIONAL: No chills, no fever, no weakness, no diaphoresis, no malaise. HEAD/FACE: No signs of trauma. EENT: No eye pain, no blurred vision, no tearing, no double vision, no ear pain, no ear discharge, no nose pain, no nasal congestion, no throat pain, no throat swelling, no mouth pain. RESPIRATORY: No cough, no orthopnea, no SOB, no stridor, no wheezing. CARDIOVASCULAR: No chest pain, no edema, no palpitations, no syncope. GASTROINTESTINAL/ABDOMINAL: No abdominal pain, no constipation, no diarrhea, no nausea, no vomiting. GENITOURINARY: No abnormal discharge, no dysuria, no frequent urination, no hematuria. No complaints of pain in the genitals. MUSCULOSKELETAL: No back pain, no gout, no joint pain, no joint swelling, no muscle pain, no muscle stiffness, no neck pain. INTEGUMENTARY: Rash and itching hives NEUROLOGICAL/PSYCH: No anxiety, not depressed, no emotional problem, no headache, no numbness, no pre-existing deficit, no history of seizures, no tremors, no weakness. HEMATOLOGIC/LYMPHATIC: Not anemic, no history of blood clots, no apparent bleeding, no bruising, glands not swollen. All Systems Negative, Except as Noted. Physical Exam Physical Exam Dictation VITAL SIGNS: Reviewed. GENERAL APPEARANCE: Alert, oriented x3, no acute distress HEAD AND FACE: Non-traumatic. EYES: PERRL, pink conjunctivas, eyelid no trauma, anterior chamber clear. EARS: Pinnas intact and no signs of trauma or erythema. Ear canals clear and no discharge. TMs no erythema. NOSE: No discharge, no bleeding. OROPHARYNX: Mouth normal, teeth no caries, tongue pink. Pharynx clear, no erythema. Tonsils no exudates, no abscesses noted. Mucous membrane moist. NECK: Supple, non-tender, no thyromegaly, no masses, no JVD, no bruits. BREAST: Deferred. CHEST: No tenderness, no crepitus, no paradoxical movement, no retractions. LUNGS: Clear, well-ventilated, symmetric, no rales, no wheezing, no rhonchi, no stridor, good breath sounds bilaterally. HEART: Regular rate, regular rhythm, no murmur, no gallops. VASCULAR: No peripheral edema. ABDOMEN: Soft, positive bowel sounds, nondistended, no guarding, nontender, no rebound, no masses no hepatomegaly, no splenomegaly, no Manzano's sign, no hernias. RECTAL: Deferred. GENITAL: Deferred. NEUROLOGICAL: Normal speech, gross motor function intact, gross sensory function intact. MUSCULOSKELETAL: Neck nontender, full range of motion, back nontender, full range of motion. EXTREMITIES: Nontender, full range of motion. SKIN: Color pink, dry, no turgor, no rash, no lacerations, no abrasions, no contusions. LYMPHATICS: Deferred. MDM CC: Hives and itching Historian: Patient Comorbidities: None Vital signs are stable Differential diagnosis: Anaphylaxis, hives, other. Patient has a pictures of hives, she reports itching. Her ENT exam is normal. She was concerned for scarlet fever since her recently had this. She has no symptoms of this. Her symptoms are very consistent with hives. It is unknown allergen. Since she has no signs of anaphylaxis at this time, the hives have improved, we will DC with a prescription for prednisone to use as needed as well as Zyrtec. Patient is agreeable with the plan. ED Course Vital Signs Date Time Temp Pulse Resp B/P (MAP) Pulse Ox O2 Delivery O2 Flow Rate FiO2 06/25/24 09:07 98.2 74 18 115/84 97 Room Air 0 DX & DISP Disposition: Discharge Departure Impression: Primary Impression: Hives Condition: Stable Assign Patient to: Your symptoms are most consistent with hives. This is generally an allergic reaction. You do not have any signs of scarlet fever. I have prescribed prednisone tabs. You can take this medication twice per day as needed for itching or hives. I have given you five days' worth. You did not need to complete this course of medications if you did not need it. For itching, you can also take [id number] Zyrtec. Take 10 mg once per day for your symptoms. Please return to the emergency department if you have any concerns. Scripts Prednisone (Prednisone) 20 Mg Tablet 1 TAB PO BID for 5 Days, #10 TAB 0 Refills Prov: CONNOR ORLANDO DO 06/25/24 Referrals: MELISSA SAINZ MD (PCP) CONNOR ORLANDO DO Jun 25, 2024 09:29
[2024-06-25 10:00] VITALS: BP 120/68; PULSE 70; RESP 18; TEMP 97.7; O2SAT 99
== END 2024-06-25 10:50 | disposition home or self-care (01) ==
LOC: EDH 09:05
DX: L50.0 Allergic urticaria (principal); E66.9 Obesity, unspecified; Z79.624 Long term (current) use of inhibitors of nucleotide synthesis; Z88.5 Allergy status to narcotic agent
CPT/HCPCS: 87880; 99283

== ENCOUNTER 2025-01-05 08:40 | Emergency (ER) | payer MEDICAID ==
[~2025-01-05] VITALS: Ht 152.4 cm; Wt 70.3 kg
[~2025-01-05 08:40] MED LIST changes: +PRED20TA3 PO
[2025-01-05] MEDS: ondanSETRON 4MG TABLET PO ONE (09:21)
[2025-01-05 09:25] LABS: BASOPHILS # (AUTO) 0.03 K/uL (0.00-0.20); BASOPHILS % (AUTO) 0.4 % (0.0-5.0); EOSINOPHILS # (AUTO) 0.12 K/uL (0.00-0.70); EOSINOPHILS % (AUTO) 1.6 % (0.0-8.0); HEMATOCRIT 34.1 % (36-48); IMMATURE GRANULOCYTE ABSOLUTE 0.04 K/uL (0-1); LYMPHOCYTES # (AUTO) 2.2 K/uL (1.0-4.8); LYMPHOCYTES % (AUTO) 29.2 % (21.0-51.0); MEAN CORPUSCULAR HEMOGLOBIN 25.1 pg (27.0-33.0); MEAN CORPUSCULAR HGB CONC 30.5 g/dL (32.0-36.0); MEAN CORPUSCULAR VOLUME 82.2 fL (79-99); MONOCYTES # (AUTO) 0.5 K/uL (0.1-1.0); MONOCYTES % (AUTO) 6.2 % (3.0-13.0); NEUTROPHILS # (AUTO) 4.6 K/uL (1.8-7.7); NEUTROPHILS % (AUTO) 62.1 % (40.0-77.0); PLATELET COUNT (AUTO) 290 K/uL (130-400); RED BLOOD CELL COUNT(AUTO) 4.15 MIL/uL (4.00-5.50); RED CELL DISTRIBUTION WIDTH 16.2 % (11.0-15.5); WHITE BLOOD COUNT (AUTO) 7.5 K/uL (4.8-10.8)
[2025-01-05 09:37] LABS: APPEARANCE,URINE CLOUDY (CLEAR); BILIRUBIN,URINE NEGATIVE (NEGATIVE); COLOR,URINE LIGHT-YELLOW (YELLOW); GLUCOSE, URINE (UA) NEGATIVE (NEGATIVE); KETONES,URINE NEGATIVE (NEGATIVE); LEUKOCYTE ESTERASE ,URINE 75 Leu/uL (NEGATIVE); NITRATE,URINE NEGATIVE (NEGATIVE); OCCULT BLOOD,URINE NEGATIVE (NEGATIVE); PH,URINE 5.5 (5.0-8.0); PROTEIN,URINE NEGATIVE (NEGATIVE); UROBILINOGEN,URINE 0.2 mg/dL (0.2-1.0)
[2025-01-05 09:45] LABS: ADD UA MICROSCOPIC YES
[2025-01-05 09:48] LABS: CREATININE 0.6 mg/dL (0.5-1.0); POTASSIUM 3.6 mmol/L (3.5-5.1)
[2025-01-05 09:49] LABS: MUCUS,URINE FEW LPF (None Seen); SQUAMOUS EPITHELIAL CELL,UR MANY /HPF (0-2)
--- NOTE | 2025-01-05 10:03 | ERN ---
ED Note History of Present Illness Stated Complaint: ABDOMINAL, NAUSEA, VOMITING Chief Complaint: Abdominal Pain Time Seen by MD: 08:52 Dictation: This is a 29-year-old female who presented to the emergency room with complaints of lower abdominal pain nausea vomitings for about 3 days. She denied any serious diarrhea but had a 1 episode of loose stool. She also reports mild burning micturition. No fever chills no bleeding. Temperature 98.3 pulse 100 respirations 12 blood pressure 129/89 with a pulse oximetry of 96% on room air Allergies: Coded Allergies: codeine (Unverified Allergy, Unknown, 05/03/21) Home Meds Active Scripts Prednisone (Prednisone) 20 Mg Tablet, 1 TAB PO BID for 5 Days, #10 TAB 0 Refills Prov:CONNOR ORLANDO DO 06/25/24 Amoxicillin/Potassium Clav (Amox Tr-K Clv 875-125 mg Tab) 875 Mg-125 Mg Tablet, 1 EACH PO BID for 10 Days, #20 TAB 0 Refills Prov:MARTINA RAMIERZ NP 10/12/23 Cephalexin Monohydrate (Keflex) 500 Mg Cap, 500 MG PO TID for 7 Days, #21 CAP 0 Refills Prov:ARTURO RAMIREZ [facility] 05/12/23 Clotrimazole (Clotrimazole) 1 % Cream..g., 1 CARLOS VG DAILY for 7 Days, #7 CARLOS 0 Refills Prov:ARTURO RAMIREZ [facility] 05/12/23 Albuterol Sulfate (Ventolin Hfa/Proventil Hfa/Proair Hfa) 90 Mcg Puff, 1-2 PUFF IH Q4H PRN for SHORTNESS OF BREATH for 5 Days, #1 INH 0 Refills PHARMACY TO DISPENSE 1 INHALER FOR USE Prov:ARMIDA QUINN MD 04/16/23 Diphenhydramine HCl (Benadryl) 50 Mg Cap, 50 MG PO Q6HPRN PRN for congestion, #15 CAP Prov:ARMIDA QUINN MD 04/16/23 Acetaminophen (Tylenol) 500 Mg Tab, 1000 MG PO Q6HPRN PRN for fever/pain, #30 TAB Prov:ARMIDA QUINN MD 04/16/23 Cephalexin Monohydrate (Keflex) 500 Mg Cap, 500 MG PO TID for 10 Days, #30 CAP Prov:NBA SPRING Zaki [employer] 02/18/23 Neomy Sulf/Polymyx B Sulf/Hc (Cortisporin Otic Soln) 20 Drop/Ml Otsol, 4 DROP AD TID for 10 Days, #1 BOTTLE Prov:NBA SPRING Zaki [employer] 02/18/23 Cephalexin Monohydrate (Keflex) 500 Mg Cap, 500 MG PO [id number] for 10 Days, #40 CAP Prov:EDIE COTTRELL NP 01/09/23 Valacyclovir HCl (Valtrex) 1,000 Mg Tablet, 1000 MG PO TID for 7 Days, #21 TAB 1 Refill Prov:AMELIA DURANT MD 08/28/22 Naproxen (Naproxen) 375 Mg Tablet.dr, 375 MG PO BID for 7 Days, #14 TAB Prov:HERB NUNEZ MD 08/11/22 Phenazopyridine HCl (Pyridium) 200 Mg Tab, 200 MG PO TIDPC for 3 Days, #9 TAB TAKE WITH FOOD TO PREVENT STOMACH UPSET. Prov:LUCY MONTIEL 05/14/22 Cephalexin Monohydrate (Keflex) 500 Mg Cap, 500 MG PO TID for 7 Days, #21 CAP Prov:LUCY MONTIEL 05/14/22 Ibuprofen (Ibuprofen) 600 Mg Tablet, 600 MG PO Q6H PRN for PAIN, #15 TAB Prov:POLLY DIEGO [facility] 03/16/22 Past Medical History Past Medical History: No Pertinent History Additional Past Medical Hx: Ovarian cyst, obesity Surgical History: None Surgical History Other: OVARIAN CYST Family History: Negative Social History: Negative, Lives with family History: Not Applicable : 4 Para: 2 Aborts: 2 RN Note Reviewed/Agreed w/PFSH: Yes Review of System Dictation Constitutional: Negative for fever,chills, and weight loss Eyes: Negative for injury, pain,redness, and discharge ENT: Negative for injury,pain or swelling Cardiovascular: Negative for chest pain, palpitations, and edema Respiratory: Negative for shortness of breath, cough, and wheezing, Abdomen/GI: Negative for lower abdominal pain, nausea, vomiting, diarrhea, Back: Negative for injury and pain : Negative for injury, bleeding and discharge MS/Extremity: Negative for injury and deformity Skin: Negative for rash, and discoloration Neuro: Negative for headache, weakness, numbness, tingling, and seizure Psych: Negative for suicide ideation, homicidal ideation, and hallucinations Initial Vital Sign VS Vital Signs Date Time Temp Pulse Resp B/P (MAP) Pulse Ox O2 Delivery O2 Flow Rate FiO2 01/05/25 08:40 98.2 100 12 129/89 96 Room Air 0 Physical Exam Dictation General: awake, alert, NAD short overweight Head/Face: Normocephalic, atraumatic Eyes: PERRL, EOMI, vision at baseline ENT: oral cavity clear, TMs clear, no signs of infection Neck: Trachea midline, supple, no nuchal rigidity Cardiovascular: RRR, normal S1/S2, No MRGs, no JVD Respiratory: CTAB, no respiratory distress, No rales or wheezes Abdomen: Soft, mild tenderness in the hypogastric area, non-distended, normal bowel sounds, no guarding or rebound. Skin: Warm, dry, normal turgor, no rash MS/Extremity: Pulses equal, no cyanosis, neurovascular intact, FROM Neuro: COAx4, GCS 15, strength 5/5, CN 2-12 intact, normal cerebellar exam, normal gait, Psych: Normal behavior, mood, and affect normal Extremities-trace edema without any palpable cords, Homans sign is negative Results (Laboratory/Radiology) Laboratory/Radiology Laboratory Tests Test 01/05/25 09:16 01/05/25 09:17 White Blood Count 7.5 K/uL (4.8-10.8) Red Blood Count 4.15 MIL/uL (4.00-5.50) Hemoglobin 10.4 g/dL (12.0-16.0) L Hematocrit 34.1 % (36-48) L Mean Corpuscular Volume 82.2 fL (79-99) Mean Corpuscular Hemoglobin 25.1 pg (27.0-33.0) L Mean Corpuscular Hemoglobin Concent 30.5 g/dL (32.0-36.0) L Red Cell Distribution Width 16.2 % (11.0-15.5) H Platelet Count 290 K/uL (130-400) Mean Platelet Volume 10.3 fL (7.5-10.5) Immature Granulocyte % (Auto) 0.5 % (0-1) Neutrophils (%) (Auto) 62.1 % (40.0-77.0) Lymphocytes (%) (Auto) 29.2 % (21.0-51.0) Monocytes (%) (Auto) 6.2 % (3.0-13.0) Eosinophils (%) (Auto) 1.6 % (0.0-8.0) Basophils (%) (Auto) 0.4 % (0.0-5.0) Neutrophils # (Auto) 4.6 K/uL (1.8-7.7) Lymphocytes # (Auto) 2.2 K/uL (1.0-4.8) Monocytes # (Auto) 0.5 K/uL (0.1-1.0) Eosinophils # (Auto) 0.12 K/uL (0.00-0.70) Basophils # (Auto) 0.03 K/uL (0.00-0.20) Absolute Immature Granulocyte (auto 0.04 K/uL (0-1) Nucleated Red Blood Cells 0.0 % (0.0-0.19) Red Blood Cell Morphology See comments Sodium Level 142 mmol/L (136-145) Potassium Level 3.6 mmol/L (3.5-5.1) Chloride Level 107 mmol/L (101-111) Carbon Dioxide Level 26 mmol/L (21-32) Blood Urea Nitrogen 8 mg/dL (7-18) Creatinine 0.6 mg/dL (0.5-1.0) Glomerular Filtration Rate Calc 123 mL/min (>90) Random Glucose 146 mg/dL (70-105) H Total Calcium 9.1 mg/dL (8.5-10.1) Lipase 59 U/L (16-77) Human Chorionic Gonadotropin, Quant 0 mIU/mL (0-5) Urine Color LIGHT-YELLOW (YELLOW) Urine Appearance CLOUDY (CLEAR) H Urine pH 5.5 (5.0-8.0) Urine Specific [place] 1.018 (1.001-1.031) Urine Protein NEGATIVE mg/dL (NEGATIVE) Urine Glucose (UA) NEGATIVE mg/dL (NEGATIVE) Urine Ketones NEGATIVE mg/dL (NEGATIVE) Urine Occult Blood NEGATIVE (NEGATIVE) Urine Nitrate NEGATIVE (NEGATIVE) Urine Bilirubin NEGATIVE mg/dL (NEGATIVE) Urine Urobilinogen 0.2 mg/dL (0.2-1.0) Urine Leukocyte Esterase 75 Robyn/uL (NEGATIVE) H Urine RBC 2-5 /HPF (0-1) H Urine WBC 11-25 /HPF (0-1) H Urine Squamous Epithelial Cells MANY /HPF (0-2) Urine Bacteria None /HPF (None Seen) Labs Reviewed?: Yes ED Course ED Course Orders Procedure Category Date Status Time Cbc With Differential LAB 01/05/25 In Process 09:03 Hcg,Quantitative LAB 01/05/25 Complete 09:03 Urinalysis Profile LAB 01/05/25 Complete 09:03 Ondansetron 4mg PHA 01/05/25 Complete Tablet (Zofran 4mg 09:30 Lipase LAB 01/05/25 Complete 09:03 Basic Metabolic Panel LAB 01/05/25 Complete 09:03 Culture Urine ELBA 01/05/25 Logged 09:46 Ceftriaxone 1g Vial PHA 01/05/25 Transmitted (Rocephine 1g Inj) 10:30 Ketorolac PHA 01/05/25 Transmitted Tromethamine 30mg/Ml 10:30 Current Medications Medications (Trade) Dose Ordered Sig/Silvestre Route PRN Reason Start Time Stop Time Status Last Admin Dose Admin Ondansetron HCl (zoFRAN 4MG TABLET) 4 mg ONCE ONCE PO 01/05/25 09:30 01/05/25 09:31 DC 01/05/25 09:21 Vital Signs Date Time Temp Pulse Resp B/P (MAP) Pulse Ox O2 Delivery O2 Flow Rate FiO2 01/05/25 08:40 98.2 100 12 129/89 96 Room Air 0 We will perform diagnostic labs, and administer medications according to the patient's complaint. Once the results are available, will review and personally interpreted the labs to rule out any acute life-threatening emergency the trach require immediate intervention and treatment. I will then re-evaluate the patient after treatment and diagnostic exams have return to determine whether the patient requires any further testing, can safely be discharged home or need further admission to hospital for additional treatment and evaluation 9:45 a.m. labs reviewed CBC showed a white count of 7.1 hemoglobin of 10.4 BNP 7 is completely within normal limits. Urine test is negative urinalysis showed positive leuko esterase and WBCs suggestive of a infection. A dose of Rocephin and discharge her on p.o. antibiotics as outpatient Medical Decision Making MDM MDM: Differential diagnosis: Cystitis, UTI, menstrual pain, , colitis, gastroenteritis Rationale: Tests considered and ordered secondary to shared decision making include: Previous outside records reviewed: Old ER visits. Risk of complication and/or morbidity or mortality of patient management: None Medications-Per medication reconciliation Need for hospitalization: Patient does not meet criteria for hospitalization. Need for emergency major/minor surgery: No There are no social concerns with this patient. Prescription drug management Prescriptions will include symptomatic care Patient's prior external medical records from other ER visits were reviewed by me as indicated. Prior testing and results from previous visits were reviewed. Prior tests were taken into account with medical decision making and resource utilization, independent historian/historians were used to obtain complete medical history. I independently interpreted the test that were performed, results were reviewed by me and considered findings on radiology if ordered. Medical management and examination interpretation discussions were had by me with other qualified healthcare professionals as indicated for the patient's care. Problem List Problem List: (1) UTI (urinary tract infection) DX & DISP Disposition: Discharge Departure Impression: Primary Impression: UTI (urinary tract infection) during Condition: Stable Scripts Nitrofurantoin Monohyd/M-Cryst (Macrobid 100 mg Capsule) 100 Mg Capsule 1 CAP PO BID for 7 Days, #14 CAP 0 Refills Prov: PHUONG REHMAN MD 01/05/25 Additional Instructions: Patient and the caregiver have been informed of all the diagnostic tests and the imaging conducted during the today's visit to the emergency room and has verbali zed understanding of the results I have personally reviewed and interpreted all diagnostic exams performed here in the ER today as well as the vital signs documented by the nursing staff. The patient is now being discharged to home and should follow up with the primary care physician or the specialist as directed by the ER staff. Follow-up with primary care provider in 1 to 2 days. Take medications as directed here in the emergency room. Okay to continue home medications unless otherwise discussed during your visit in the emergency room today. Return to your nearest emergency room if symptoms worsen or if there is no improvement. Call 911 if you need immediate assistance. Take Tylenol or Motrin [id number] as needed and if no contraindications are present. Increase oral hydration. A wound culture or urine culture was ordered here in the emergency room department please follow-up with primary care provider and advise them to get repeat ports from our facility. If you had any Rubens wrap/splints jovanny t were applied here, please do not remove them until you see your primary care or specialty. Referrals: SELF,REFERRAL (PCP) PHUONG REHMAN MD Jan 05, 2025 10:03
[2025-01-05] MEDS ORDERED: NITR100C4 PO (10:10)
[2025-01-05] MEDS: cefTRIAXone 1G VIAL IM ONE (10:11)
[2025-01-05] MEDS: ketOROlac 30MG VIAL (30MG/ML) IM ONE (10:12)
[2025-01-05 10:47] VITALS: BP 121/85; PULSE 90; RESP 16; TEMP 98.3; O2SAT 97
== END 2025-01-05 10:48 | disposition home or self-care (01) ==
LOC: EDH 08:40
DX: O23.40 Unspecified infection of urinary tract in pregnancy, unspecified trimester (principal); N39.0 Urinary tract infection, site not specified; Z3A.00 Weeks of gestation of pregnancy not specified; E66.9 Obesity, unspecified; Z79.52 Long term (current) use of systemic steroids; Z79.624 Long term (current) use of inhibitors of nucleotide synthesis; Z88.5 Allergy status to narcotic agent
CPT/HCPCS: 99284; 80048; 84702; 83690; 85025; 87086; 81001; 36415; 96372 ×2; Q0162; J1885; J0696

== ENCOUNTER 2025-01-15 16:49 | Emergency (ER) | payer MEDICAID ==
[~2025-01-15] VITALS: Ht 152.4 cm; Wt 71.2 kg
[~2025-01-15 16:49] MED LIST changes: +NITR100C4 PO
[2025-01-15 17:17] VITALS: BP 117/74; PULSE 87; RESP 16; TEMP 98.1
--- NOTE | 2025-01-15 17:17 | ERN ---
ED Note History of Present Illness Stated Complaint: IRRITATION WHILE URINATING,DISCHARGE Time Seen by MD: 17:07 Time Seen by Midlevel: 17:07 Dictation: The Patient is a 29-year-old female with a history of ovarian cyst who presents to the emergency department with a yellow vaginal discharge onset yesterday. Patient also reports burning with urination. Reports having unprotected sex and multiple sex partners. Patient reports concerned for STD. Denies any fever, nausea or vomiting. Allergies: Coded Allergies: codeine (Unverified Allergy, Unknown, 05/03/21) Home Meds Active Scripts Nitrofurantoin Monohyd/M-Cryst (Macrobid 100 mg Capsule) 100 Mg Capsule, 1 CAP PO BID for 7 Days, #14 CAP 0 Refills Prov:PHUONG REHMAN MD 01/05/25 Prednisone (Prednisone) 20 Mg Tablet, 1 TAB PO BID for 5 Days, #10 TAB 0 Refills Prov:CONNOR ORLANDO DO 06/25/24 Amoxicillin/Potassium Clav (Amox Tr-K Clv 875-125 mg Tab) 875 Mg-125 Mg Tablet, 1 EACH PO BID for 10 Days, #20 TAB 0 Refills Prov:MARTINA RAMIREZ NP 10/12/23 Cephalexin Monohydrate (Keflex) 500 Mg Cap, 500 MG PO TID for 7 Days, #21 CAP 0 Refills Prov:ARTURO RAMIREZ 05/12/23 Clotrimazole (Clotrimazole) 1 % Cream..g., 1 CARLOS VG DAILY for 7 Days, #7 CARLOS 0 Refills Prov:ARTURO RAMIREZ 05/12/23 Albuterol Sulfate (Ventolin Hfa/Proventil Hfa/Proair Hfa) 90 Mcg Puff, 1-2 PUFF IH Q4H PRN for SHORTNESS OF BREATH for 5 Days, #1 INH 0 Refills PHARMACY TO DISPENSE 1 INHALER FOR USE Prov:ARMIDA QUINN MD 04/16/23 Diphenhydramine HCl (Benadryl) 50 Mg Cap, 50 MG PO Q6HPRN PRN for congestion, #15 CAP Prov:ARMIDA QUINN MD 04/16/23 Acetaminophen (Tylenol) 500 Mg Tab, 1000 MG PO Q6HPRN PRN for fever/pain, #30 TAB Prov:ARMIDA QUINN MD 04/16/23 Cephalexin Monohydrate (Keflex) 500 Mg Cap, 500 MG PO TID for 10 Days, #30 CAP Prov:NBA SPRING [employer] 02/18/23 Neomy Sulf/Polymyx B Sulf/Hc (Cortisporin Otic Soln) 20 Drop/Ml Otsol, 4 DROP AD TID for 10 Days, #1 BOTTLE Prov:SAWNBA FELIX [facility] [employer] 02/18/23 Cephalexin Monohydrate (Keflex) 500 Mg Cap, 500 MG PO [id number] for 10 Days, #40 CAP Prov:EDIE COTTRELL [employer] 01/09/23 Valacyclovir HCl (Valtrex) 1,000 Mg Tablet, 1000 MG PO TID for 7 Days, #21 TAB 1 Refill Prov:AMELIA DURANT MD 08/28/22 Naproxen (Naproxen) 375 Mg Tablet.dr, 375 MG PO BID for 7 Days, #14 TAB Prov:HERB NUNEZ MD 08/11/22 Phenazopyridine HCl (Pyridium) 200 Mg Tab, 200 MG PO TIDPC for 3 Days, #9 TAB TAKE WITH FOOD TO PREVENT STOMACH UPSET. Prov:LUCY MONTIEL 05/14/22 Cephalexin Monohydrate (Keflex) 500 Mg Cap, 500 MG PO TID for 7 Days, #21 CAP Prov:LUCY MONTIEL 05/14/22 Ibuprofen (Ibuprofen) 600 Mg Tablet, 600 MG PO Q6H PRN for PAIN, #15 TAB Prov:POLLY DIEGO [employer] 03/16/22 Past Medical History Past Medical History: No Pertinent History Additional Past Medical Hx: Ovarian cyst, obesity Surgical History: None Surgical History Other: OVARIAN CYST Family History: Negative Social History: Negative, Lives with family History: Not Applicable : 4 Para: 2 Aborts: 2 RN Note Reviewed/Agreed w/PFSH: Yes Review of System Dictation Constitutional: Negative for fever,chills, and weight loss Eyes: Negative for injury, pain,redness, and discharge ENT: Negative for injury,pain or swelling Cardiovascular: Negative for chest pain, palpitations, and edema Respiratory: Negative for shortness of breath, cough, and wheezing, Abdomen/GI: Negative for abdominal pain, nausea, vomiting, diarrhea, and constipation Back: Negative for injury and pain : Negative for injury, bleeding positive for vaginal discharge, burning urination MS/Extremity: Negative for injury and deformity Skin: Negative for rash, and discoloration Neuro: Negative for headache, weakness, numbness, tingling, and seizure Psych: Negative for suicide ideation, homicidal ideation, and hallucinations Initial Vital Sign VS Vital Signs Date Time Temp Pulse Resp B/P (MAP) Pulse Ox O2 Delivery O2 Flow Rate FiO2 01/15/25 17:17 98.1 87 16 117/74 98 Room Air 0 Physical Exam Dictation Vital Signs reviewed General Appearance: Alert, oriented x 3, no acute distress, well developed, nourished. Head and Face: non-traumatic. Eyes: PERRL, pink conjunctivas, eyelid no trauma, anterior chamber with arcus senilis. Ears: Pinnas intact and no signs of trauma or erythema ear canals clear and no discharge TM no erythema Nose: No discharge, no bleeding. Oropharynx: Mouth normal, tongue pink. pharynx clear,no erythema, tonsils no exudates, no abscesses noted, mucous membrane moist Neck: Supple, non-tender, no thyromegaly, no masses, no JVD, no bruits Breast:Deferred Chest:No tenderness, no crepitus, no paradoxical movement, no retractions Lungs:Clear, well-ventilated, symmetric, no rales, no wheezing, no rhonchi, no stridor, good breath sounds bilaterally Heart: Regular rate, regular rhythm, no murmur, no gallops Vascular: no peripheral edema, Abdomen: Soft, positive bowel sounds, nondistended, no guarding, nontender, no rebound, no masses no hepatomegaly, no splenomegaly, no Manzano's sign, no hernias. Rectal: Deferred Genital: Deferred Neurological: Normal speech, motor function intact, sensory function intact Musculoskeletal: Neck nontender, full range of motion, back nontender, full range of motion, Extremities: nontender, full range of motion Skin: Color pink, dry, no turgor, no rash, no lacerations, no abrasions, no contusions. Lymphatic: Deferred Results (Laboratory/Radiology) Laboratory/Radiology Laboratory Tests Test 01/15/25 17:31 Urine Color YELLOW (YELLOW) Urine Appearance CLOUDY (CLEAR) H Urine pH 5.5 (5.0-8.0) Urine Specific [place] 1.037 (1.001-1.031) Urine Protein 20 mg/dL (NEGATIVE) H Urine Glucose (UA) NEGATIVE mg/dL (NEGATIVE) Urine Ketones 5 mg/dL (NEGATIVE) H Urine Occult Blood +- (TRACE) (NEGATIVE) H Urine Nitrate NEGATIVE (NEGATIVE) Urine Bilirubin NEGATIVE mg/dL (NEGATIVE) Urine Urobilinogen 0.2 mg/dL (0.2-1.0) Urine Leukocyte Esterase 500 Robyn/uL (NEGATIVE) H Urine RBC 6-10 /HPF (0-1) H Urine WBC 26-50 /HPF (0-1) H Urine Squamous Epithelial Cells FEW /HPF (0-2) Urine Bacteria RARE /HPF (None Seen) Urine Hyaline Casts 2-5 /LPF (0-1 /LPF) H Urine HCG, Qualitative NEGATIVE (NEGATIVE) Labs Reviewed?: Yes ED Course ED Course Orders Procedure Category Date Status Time Urinalysis Profile LAB 01/15/25 Complete 17:14 Chlamydia & Gc Pcr ELBA 01/15/25 Logged 17:14 ,Urine Test LAB 01/15/25 Complete 17:14 Ceftriaxone 1g Vial PHA 01/15/25 In Process (Rocephine 1g Inj) 17:30 Culture Urine ELBA 01/15/25 Logged 17:45 Current Medications Medications (Trade) Dose Ordered Sig/Silvestre Route PRN Reason Start Time Stop Time Status Last Admin Dose Admin Ceftriaxone Sodium (ROCEphine 1G INJ) 1 gm ONCE IM 01/15/25 17:30 01/15/25 22:30 Vital Signs Date Time Temp Pulse Resp B/P (MAP) Pulse Ox O2 Delivery O2 Flow Rate FiO2 01/15/25 17:17 98.1 87 16 117/74 98 Room Air 0 Medical Decision Making MDM The Patient is a 29-year-old female with a history of ovarian cyst who presents to the emergency department with a yellow vaginal discharge onset yesterday. Patient also reports burning with urination. Reports having unprotected sex and multiple sex partners. Patient reports concerned for STD. Denies any fever, nausea or vomiting. Urinalysis positive for leukocyte esterase. Patient was giving a dose of Rocephin in ER we will be discharged on doxycycline for STD coverage. Patient instructed to follow up on cultures. on physical exam patient is nontoxic in appearance, non tender abdomen. Patient with stable vital sings. Differential diagnosis: UTI, STD, dysuria Need for hospitalization: Patient does not meet criteria for hospitalization. There are no social concerns with this patient. DX & DISP Disposition: Discharge Departure Impression: Primary Impression: Possible exposure to STD Additional Impression: Dysuria Condition: Stable Scripts Doxycycline Hyclate (Doxycycline Hyclate) 100 Mg Capsule 1 CAP PO BID for 7 Days, #14 CAP 0 Refills Prov: FRAN ROLLE 01/15/25 Additional Instructions: Please take your medications as prescribed. Follow up on your urine culture. Continue to follow up with your primary doctor for further STD evaluation. If symptoms worsen please return to ER. FOLLOW-UP WITH PRIMARY CARE PROVIDER IN 1 TO 2 DAYS. TAKE MEDICATIONS DIRECTED HERE IN THE EMERGENCY ROOM. OKAY TO CONTINUE HOME MEDICATIONS UNLESS OTHERWISE DISCUSSED DURING YOUR VISIT IN THE EMERGENCY ROOM TODAY. RETURN TO YOUR NEAREST EMERGENCY ROOM IF SYMPTOMS WORSEN OR IF THERE IS NO IMPROVEMENT. CALL 911 IF YOU NEED IMMEDIATE ASSISTANCE. TAKE TYLENOL OR MOTRIN SEDM-FOB-[id number] NEEDED AND IF NO CONTRAINDICATIONS ARE PRESENT. INCREASE ORAL HYDRATION. A WOUND CULTURE OR URINE CULTURE WAS ORDERED HERE IN THE EMERGENCY ROOM DEPARTMENT PLEASE FOLLOW-UP WITH PRIMARY CARE PROVIDER AND ADVISE THEM TO GET REPEAT PORTS FROM OUR FACILITY. IF YOU HAD ANY LUIS WRAP/SPLINTS THAT WERE APPLIED HERE, PLEASE DO NOT REMOVE THEM UNTIL YOU SEE YOUR PRIMARY CARE OR SPECIALTY. Referrals: SELF,REFERRAL (PCP) Time of Disposition: 18:01 I have reviewed the case, and I agree with, Diagnosis and Plan FRAN ROLLE Jan 15, 2025 17:17
[2025-01-15 17:42] LABS: APPEARANCE,URINE CLOUDY (CLEAR); BILIRUBIN,URINE NEGATIVE (NEGATIVE); COLOR,URINE YELLOW (YELLOW); GLUCOSE, URINE (UA) NEGATIVE (NEGATIVE); KETONES,URINE 5 mg/dL (NEGATIVE); LEUKOCYTE ESTERASE ,URINE 500 Leu/uL (NEGATIVE); NITRATE,URINE NEGATIVE (NEGATIVE); PH,URINE 5.5 (5.0-8.0); PROTEIN,URINE 20 mg/dL (NEGATIVE); UROBILINOGEN,URINE 0.2 mg/dL (0.2-1.0)
[2025-01-15 17:43] LABS: ADD UA MICROSCOPIC YES
[2025-01-15 17:44] LABS: HCG,QUALITATIVE URINE NEGATIVE (NEGATIVE)
[2025-01-15 17:50] LABS: BACTERIA,URINE RARE /HPF (None Seen); MUCUS,URINE FEW LPF (None Seen); SQUAMOUS EPITHELIAL CELL,UR FEW /HPF (0-2); WBC,URINE 26-50 /HPF (0-1)
[2025-01-15] MEDS ORDERED: DOXY100C5 PO (18:01)
[2025-01-15] MEDS: cefTRIAXone 1G VIAL IM SCH (18:30)
--- NOTE | 2025-01-15 18:30 | NUR ---
PT PULLED IN AND ASSESSED FROM THE WAITING ROOM
== END 2025-01-15 18:57 | disposition home or self-care (01) ==
LOC: EDH 16:49
DX: R30.0 Dysuria (principal); E66.9 Obesity, unspecified; Z20.2 Contact with and (suspected) exposure to infections with a predominantly sexual mode of transmission; Z79.52 Long term (current) use of systemic steroids; Z79.624 Long term (current) use of inhibitors of nucleotide synthesis; Z88.5 Allergy status to narcotic agent; Z68.30 Body mass index [BMI] 30.0-30.9, adult
CPT/HCPCS: 99283; 87086; 87491; 87591; 81001; 81025; 96372; J0696

== ENCOUNTER 2025-04-02 16:22 | Emergency (ER) | payer MEDICAID ==
[~2025-04-02] VITALS: Ht 152.4 cm; Wt 68.0 kg
[~2025-04-02 16:22] MED LIST changes: +CEPH500T PO; +DOXY100C5 PO; +IBUP-1492 PO; -IBUP-2070 PO
[2025-04-02 17:06] LABS: RAPID GROUP A STREP negative (NEGATIVE)
[2025-04-02 17:09] VITALS: BP 108/78; PULSE 95; RESP 18; TEMP 100; O2SAT 98
[2025-04-02 17:11] LABS: SARS-CoV-2, RNA, NAAT NEGATIVE SARS CoV-2 (NEGATIVE)
[2025-04-02 17:16] LABS: INFLUENZA TYPE A Negative For Type A (NEGATIVE); INFLUENZA TYPE B Negative For Type B (NEGATIVE)
--- NOTE | 2025-04-02 17:42 | NUR ---
PT UNWILLING WO WAIT FOR FURTHER EVALUATION PROVIDER LL INFORMED AND SPOKE WITH PATIENT
== END 2025-04-02 17:45 | disposition left against medical advice (07) ==
LOC: EDH 16:22
DX: R05.9 Cough, unspecified (principal); R09.81 Nasal congestion; J02.9 Acute pharyngitis, unspecified; Z53.21 Procedure and treatment not carried out due to patient leaving prior to being seen by health care provider; Z20.822 Contact with and (suspected) exposure to COVID-19
CPT/HCPCS: 87635; 87804; 87880

== ENCOUNTER 2025-04-30 21:40 | Emergency (ER) | payer MEDICAID ==
[~2025-04-30] VITALS: Ht 152.4 cm; Wt 81.2 kg
[~2025-04-30 21:40] MED LIST changes: -DIPH50 PO; +DIPH50CA38 PO
[2025-04-30] MEDS ORDERED: ONDA-243 SL (22:50)
--- NOTE | 2025-04-30 22:50 | ERN ---
ED Note History of Present Illness Stated Complaint: N/V Chief Complaint: Nausea,Vomiting,Diarrhea Time Seen by MD: 21:42 Dictation: 30-year-old female presents to ER complaints of nausea, vomiting and diarrhea. Patient denies any fever blood in stools. Allergies: Coded Allergies: codeine (Unverified Allergy, Unknown, 05/03/21) Home Meds Active Scripts Ondansetron (Ondansetron Odt) 4 Mg Tab.rapdis, 4 MG SL ONCE for nausea, #15 TAB Prov:JOVI HERRON NP 04/30/25 Cephalexin (Cephalexin) 500 Mg Tablet, 1 TAB PO BID for 7 Days, #14 TAB 0 Refills Prov:CELNIE RASMUSSEN 02/09/25 Doxycycline Hyclate (Doxycycline Hyclate) 100 Mg Capsule, 1 CAP PO BID for 7 Days, #14 CAP 0 Refills Prov:FRAN ROLLE [employer] 01/15/25 Nitrofurantoin Monohyd/M-Cryst (Macrobid 100 mg Capsule) 100 Mg Capsule, 1 CAP PO BID for 7 Days, #14 CAP 0 Refills Prov:PHUONG REHMAN MD 01/05/25 Prednisone (Prednisone) 20 Mg Tablet, 1 TAB PO BID for 5 Days, #10 TAB 0 Refills Prov:CONNOR ORLANDO DO 06/25/24 Amoxicillin/Potassium Clav (Amox Tr-K Clv 875-125 mg Tab) 875 Mg-125 Mg Tablet, 1 EACH PO BID for 10 Days, #20 TAB 0 Refills Prov:MARTINA RAMIREZ NP 10/12/23 Cephalexin Monohydrate (Keflex) 500 Mg Cap, 500 MG PO TID for 7 Days, #21 CAP 0 Refills Prov:ARTURO RAMIREZ [employer] 05/12/23 Clotrimazole (Clotrimazole) 1 % Cream..g., 1 CARLOS VG DAILY for 7 Days, #7 CARLOS 0 Refills Prov:ARTURO RAMIREZ [facility] 05/12/23 Albuterol Sulfate (Ventolin Hfa/Proventil Hfa/Proair Hfa) 90 Mcg Puff, 1-2 PUFF IH Q4H PRN for SHORTNESS OF BREATH for 5 Days, #1 INH 0 Refills PHARMACY TO DISPENSE 1 INHALER FOR USE Prov:ARMIDA QUINN MD 04/16/23 Diphenhydramine HCl (Benadryl) 50 Mg Cap, 50 MG PO Q6HPRN PRN for congestion, #15 CAP Prov:ARMIDA QUINN MD 04/16/23 Acetaminophen (Tylenol) 500 Mg Tab, 1000 MG PO Q6HPRN PRN for fever/pain, #30 TAB Prov:ARMIDA QUINN MD 04/16/23 Cephalexin Monohydrate (Keflex) 500 Mg Cap, 500 MG PO TID for 10 Days, #30 CAP Prov:NBA SPRING V [facility] 02/18/23 Neomy Sulf/Polymyx B Sulf/Hc (Cortisporin Otic Soln) 20 Drop/Ml Otsol, 4 DROP AD TID for 10 Days, #1 BOTTLE Prov:BNA SPRING V [facility] 02/18/23 Cephalexin Monohydrate (Keflex) 500 Mg Cap, 500 MG PO [id number] for 10 Days, #40 CAP Prov:EDIE COTTRELL NP 01/09/23 Valacyclovir HCl (Valtrex) 1,000 Mg Tablet, 1000 MG PO TID for 7 Days, #21 TAB 1 Refill Prov:AMELIA DURANT MD 08/28/22 Naproxen (Naproxen) 375 Mg Tablet.dr, 375 MG PO BID for 7 Days, #14 TAB Prov:HERB NUNEZ MD 08/11/22 Phenazopyridine HCl (Pyridium) 200 Mg Tab, 200 MG PO TIDPC for 3 Days, #9 TAB TAKE WITH FOOD TO PREVENT STOMACH UPSET. Prov:LUCY MONTIEL 05/14/22 Cephalexin Monohydrate (Keflex) 500 Mg Cap, 500 MG PO TID for 7 Days, #21 CAP Prov:LUCY MONTIEL 05/14/22 Ibuprofen (Ibuprofen) 600 Mg Tablet, 600 MG PO Q6H PRN for PAIN, #15 TAB Prov:POLLY DIEGO [facility] 03/16/22 Past Medical History Past Medical History: GERD, Other Additional Past Medical Hx: Ovarian cyst, obesity Surgical History: None Surgical History Other: OVARIAN CYST Family History: Negative Social History: Negative, Lives with family History: Not Applicable : 4 Para: 2 Aborts: 2 Review of System Dictation CONSTITUTIONAL: NEGATIVE FOR FEVER,CHILLS, AND WEIGHT LOSS EYES: NEGATIVE FOR INJURY, PAIN,REDNESS, AND DISCHARGE ENT: NEGATIVE FOR INJURY,PAIN OR SWELLING CARDIOVASCULAR: NEGATIVE FOR CHEST PAIN, PALPITATIONS, AND EDEMA RESPIRATORY: NEGATIVE FOR SHORTNESS OF BREATH, COUGH, WHEEZING, AND PLEURITIC CHEST PAIN ABDOMEN/GI: Positive for VOMITING AND DIARRHEA. BACK: NEGATIVE FOR PAIN OR INJURY : NEGATIVE FOR INJURY, BLEEDING AND DISCHARGE MS/EXTREMITY: NEGATIVE FOR INJURY AND DEFORMITY SKIN: NEGATIVE FOR RASH, AND DISCOLORATION NEURO: NEGATIVE FOR HEADACHE, WEAKNESS, NUMBNESS, TINGLING, AND SEIZURE PSYCH: NEGATIVE FOR SUICIDE IDEATION, HOMICIDAL IDEATION, AND HALLUCINATIONS ALLERGY/IMMUNOLOGY: NEGATIVE FOR HIVES, RASH, AND ALLERGIES ALL SYSTEMS NEGATIVE, EXCEPT NOTED ABOVE. 13 POINT REVIEW OF SYSTEMS ASSESSED AND ALL NEGATIVE EXCEPT FOR ABOVE. Initial Vital Sign VS Vital Signs Date Time Temp Pulse Resp B/P (MAP) Pulse Ox O2 Delivery O2 Flow Rate FiO2 04/30/25 21:42 98.2 68 18 130/87 98 04/30/25 23:42 Room Air* 0 21 Physical Exam Dictation General: awake, alert, NAD Head/Face: Normocephalic, atraumatic Eyes: PERRL, EOMI, vision at baseline ENT: oral cavity clear, TMs clear, no signs of infection Neck: Trachea midline, supple, no nuchal rigidity Cardiovascular: RRR, normal no JVD Respiratory: CTAB, no respiratory distress, No rales or wheezes Abdomen: Soft, non-tender, non-distended, normal bowel sounds, no guarding or rebound. Skin: Warm, dry, normal turgor, no rash MS/Extremity: Pulses equal, no cyanosis, neurovascular intact, FROM Neuro: COAx4, GCS 15, strength 5/5, CN 2-12 intact, normal cerebellar exam, normal gait, Psych: Normal behavior, mood, and affect normal ED Course ED Course Orders Procedure Category Date Status Time Ondansetron Odt 4mg PHA 04/30/25 Complete Tab (Zofran 4mg Odt) 23:00 Current Medications Medications (Trade) Dose Ordered Sig/Silvestre Route PRN Reason Start Time Stop Time Status Last Admin Dose Admin Ondansetron HCl (zoFRAN 4MG ODT) 4 mg ONCE ONCE SL 04/30/25 23:00 04/30/25 23:01 DC 04/30/25 23:28 Vital Signs Date Time Temp Pulse Resp B/P (MAP) Pulse Ox O2 Delivery O2 Flow Rate FiO2 04/30/25 23:42 98.2 74 16 128/82 98 Room Air* 0 21 04/30/25 21:42 98.2 68 18 130/87 98 Medical Decision Making MDM MDM: Differential diagnosis: Gastroenteritis, gastritis, infectious diarrhea, food poisoning Rationale: Tests considered and ordered secondary to shared decision making include: labs, ECG and radiology Previous outside records reviewed: Old ER visits. Risk of complication and/or morbidity or mortality of patient management: None Medications-Per medication reconciliation Need for hospitalization: Patient does NOT meet criteria for hospitalization. Need for emergency major/minor surgery: No There are no social concerns with this patient. Prescription drug management Prescriptions will include symptomatic care Patient's prior external medical records from other ER visits were reviewed by me as indicated. Prior testing and results from previous visits were reviewed. Prior tests were taken into account with medical decision making and resource utilization, independent historian/historians were used to obtain complete medical history. I independently interpreted the test that were performed, results were reviewed by me and considered findings on radiology if ordered. Patient declined lab work. DX & DISP Disposition: Discharge Departure Impression: Primary Impression: Gastroenteritis Condition: Stable Scripts Ondansetron (Ondansetron Odt) 4 Mg Tab.rapdis 4 MG SL ONCE for nausea, #15 TAB Prov: JOVI HERRON NP 04/30/25 Additional Instructions: FOLLOW-UP WITH YOUR PCP IN 24-72 HOURS AND IN THE EVENT IF SYMPTOMS WORSEN OR AN EMERGENCY OVERNIGHT REPORT TO THE ED IMMEDIATELY Referrals: SELF,REFERRAL (PCP) ATTESTATION BY PHYSICIAN I PERFORMED THE SUBSTANTIVE PORTION OF THE VISIT. I HAVE REVIEWED AND PERSONALLY MADE AND APPROVED THE MANAGEMENT PLAN THAT IS DOCUMENTED IN THE NOTE BY MYSELF FOR THE A PP. JOVI HERRON NP Apr 30, 2025 22:50 HERB NUNEZ MD May 01, 2025 19:24
[2025-04-30 23:42] VITALS: BP 128/82; PULSE 74; RESP 16; TEMP 98.2; O2SAT 98
== END 2025-04-30 23:45 | disposition home or self-care (01) ==
LOC: EDH 21:40
DX: K52.9 Noninfective gastroenteritis and colitis, unspecified (principal); E66.9 Obesity, unspecified; Z79.52 Long term (current) use of systemic steroids; Z79.624 Long term (current) use of inhibitors of nucleotide synthesis; Z88.5 Allergy status to narcotic agent; Z68.35 Body mass index [BMI] 35.0-35.9, adult
CPT/HCPCS: 99283

== ENCOUNTER 2025-07-16 10:11 | Emergency (ER) | payer MEDICAID ==
[~2025-07-16] VITALS: Ht 152.4 cm; Wt 82.1 kg
[~2025-07-16 10:11] MED LIST changes: +ONDA-243 SL
[2025-07-16 10:12] VITALS: BP 126/75; PULSE 91; RESP 16; TEMP 98.5
[2025-07-16] MEDS ORDERED: FLUT16H NS (10:24)
[2025-07-16] MEDS ORDERED: AMOX1TAB16 PO (10:24)
--- NOTE | 2025-07-16 10:24 | ERN ---
General Chief Complaint: Cough Stated Complaint: COUGH Time Seen by MD: 10:16 Source: patient History of Present Illness Initial Comments Patient is a 30-year-old female coming in complaining of cough nasal congestion and sore throat. Patient states that this has been ongoing for three days. No fever or chills. Allergies: Coded Allergies: codeine (Unverified Allergy, Unknown, 05/03/21) Home Meds Active Scripts Ondansetron (Ondansetron Odt) 4 Mg Tab.rapdis, 4 MG SL ONCE for nausea, #15 TAB Prov:[facility] 04/30/25 Cephalexin (Cephalexin) 500 Mg Tablet, 1 TAB PO BID for 7 Days, #14 TAB 0 Refills Prov:CELINE RASMUSSEN 02/09/25 Doxycycline Hyclate (Doxycycline Hyclate) 100 Mg Capsule, 1 CAP PO BID for 7 Days, #14 CAP 0 Refills Prov:[facility] 01/15/25 Nitrofurantoin Monohyd/M-Cryst (Macrobid 100 mg Capsule) 100 Mg Capsule, 1 CAP PO BID for 7 Days, #14 CAP 0 Refills Prov:PHUONG REHMAN MD 01/05/25 Prednisone (Prednisone) 20 Mg Tablet, 1 TAB PO BID for 5 Days, #10 TAB 0 Refills Prov:CONNOR ORLANDO DO 06/25/24 Amoxicillin/Potassium Clav (Amox Tr-K Clv 875-125 mg Tab) 875 Mg-125 Mg Tablet, 1 EACH PO BID for 10 Days, #20 TAB 0 Refills Prov:[facility] 10/12/23 Cephalexin Monohydrate (Keflex) 500 Mg Cap, 500 MG PO TID for 7 Days, #21 CAP 0 Refills Prov:[facility] 05/12/23 Clotrimazole (Clotrimazole) 1 % Cream..g., 1 CARLOS VG DAILY for 7 Days, #7 CARLOS 0 Refills Prov:[facility] 05/12/23 Albuterol Sulfate (Ventolin Hfa/Proventil Hfa/Proair Hfa) 90 Mcg Puff, 1-2 PUFF IH Q4H PRN for SHORTNESS OF BREATH for 5 Days, #1 INH 0 Refills PHARMACY TO DISPENSE 1 INHALER FOR USE Prov:ARMIDA QUINN MD 04/16/23 Diphenhydramine HCl (Benadryl) 50 Mg Cap, 50 MG PO Q6HPRN PRN for congestion, #15 CAP Prov:ARMIDA QUINN MD 04/16/23 Acetaminophen (Tylenol) 500 Mg Tab, 1000 MG PO Q6HPRN PRN for fever/pain, #30 TAB Prov:ARMIDA QUINN MD 04/16/23 Cephalexin Monohydrate (Keflex) 500 Mg Cap, 500 MG PO TID for 10 Days, #30 CAP Prov:[facility] 02/18/23 Neomy Sulf/Polymyx B Sulf/Hc (Cortisporin Otic Soln) 20 Drop/Ml Otsol, 4 DROP AD TID for 10 Days, #1 BOTTLE Prov:[facility] 02/18/23 Cephalexin Monohydrate (Keflex) 500 Mg Cap, 500 MG PO [id number] for 10 Days, #40 CAP Prov:EDIE COTTRELL NP 01/09/23 Valacyclovir HCl (Valtrex) 1,000 Mg Tablet, 1000 MG PO TID for 7 Days, #21 TAB 1 Refill Prov:AMELIA DURANT MD 08/28/22 Naproxen (Naproxen) 375 Mg Tablet.dr, 375 MG PO BID for 7 Days, #14 TAB Prov:HERB NUNEZ MD 08/11/22 Phenazopyridine HCl (Pyridium) 200 Mg Tab, 200 MG PO TIDPC for 3 Days, #9 TAB TAKE WITH FOOD TO PREVENT STOMACH UPSET. Prov:LUCY MONTIEL 05/14/22 Cephalexin Monohydrate (Keflex) 500 Mg Cap, 500 MG PO TID for 7 Days, #21 CAP Prov:LUCY MONTIEL 05/14/22 Ibuprofen (Ibuprofen) 600 Mg Tablet, 600 MG PO Q6H PRN for PAIN, #15 TAB Prov:[facility] 03/16/22 Past Medical History Past Medical History: GERD, Other Medical History Other: Ovarian cyst, obesity Past Surgical History: None Surgical History Other: OVARIAN CYST Family History Family History: Negative Social History Social History: Negative, Lives with family Female( History) History: Not Applicable LMP: Jul 11, 2025 : 4 Para: 2 Aborts: 2 ROS Dictation CONSTITUTIONAL: No chills, no fever, no weakness, no diaphoresis, no malaise. HEAD/FACE: No signs of trauma. EENT: No eye pain, no blurred vision, no tearing, no double vision, no ear pain, no ear discharge, no nose pain, nasal congestion, throat pain, no throat swelling, no mouth pain. RESPIRATORY: cough, no orthopnea, no SOB, no stridor, no wheezing. CARDIOVASCULAR: No chest pain, no edema, no palpitations, no syncope. GASTROINTESTINAL/ABDOMINAL: No abdominal pain, no constipation, no diarrhea, no nausea, no vomiting. GENITOURINARY: No abnormal discharge, no dysuria, no frequent urination, no hematuria. No complaints of pain in the genitals. MUSCULOSKELETAL: No back pain, no gout, no joint pain, no joint swelling, no muscle pain, no muscle stiffness, no neck pain. INTEGUMENTARY: No change in color, no change in hair/nails, no dryness, no lesion, no lumps, no rash. NEUROLOGICAL/PSYCH: No anxiety, not depressed, no emotional problem, no headache, no numbness, no pre-existing deficit, no history of seizures, no tremors, no weakness. HEMATOLOGIC/LYMPHATIC: Not anemic, no history of blood clots, no apparent bleeding, no bruising, glands not swollen. All Systems Negative, Except as Noted. Physical Exam Physical Exam Dictation VITAL SIGNS: Reviewed. GENERAL APPEARANCE: Alert, oriented x3, no acute distress, obese. HEAD AND FACE: Non-traumatic. EYES: PERRL, pink conjunctivas, eyelid no trauma, anterior chamber clear. EARS: Pinnas intact and no signs of trauma or erythema. Ear canals clear and no discharge. TMs erythema. NOSE: No discharge, no bleeding. OROPHARYNX: Mouth normal, teeth no caries, tongue pink. Pharynx erythema. Tonsils no exudates, no abscesses noted. Mucous membrane moist. NECK: Supple, non-tender, no thyromegaly, no masses, no JVD, no bruits. BREAST: Deferred. CHEST: No tenderness, no crepitus, no paradoxical movement, no retractions. LUNGS: Clear, well-ventilated, symmetric, no rales, no wheezing, no rhonchi, no stridor, good breath sounds bilaterally. HEART: Regular rate, regular rhythm, no murmur, no gallops. VASCULAR: No peripheral edema. ABDOMEN: Soft, positive bowel sounds, nondistended, no guarding, nontender, no rebound, no masses no hepatomegaly, no splenomegaly, no Manzano's sign, no hernias. RECTAL: Deferred. GENITAL: Deferred. NEUROLOGICAL: Normal speech, gross motor function intact, gross sensory function intact. MUSCULOSKELETAL: Neck nontender, full range of motion, back nontender, full range of motion. EXTREMITIES: Nontender, full range of motion. SKIN: Color pink, dry, no turgor, no rash, no lacerations, no abrasions, no contusions. LYMPHATICS: Deferred. Results Laboratory and Microbiology Labs Reviewed?: Yes MDM MDM: Differential diagnosis: Sinusitis, URI, COVID, strep, flu Rationale: Tests considered and ordered secondary to shared decision making include: Previous outside records reviewed: Old ER visits. Risk of complication and/or morbidity or mortality of patient management: None Medications-Per medication reconciliation Need for hospitalization: Patient does not meet criteria for hospitalization. Need for emergency major/minor surgery: No Patient is a 30-year-old female coming in complaining of URI symptoms. On physical exam that has oropharyngeal erythema nasal turbinate swelling bilateral as well as bilateral tympanic membrane erythema. Patient will be discharged in stable condition with a diagnosis of sinusitis medication will be provided for symptomatic relief. I did advised her appropriate follow up with PCP for ongoing management. ED Course Vital Signs Date Time Temp Pulse Resp B/P (MAP) Pulse Ox O2 Delivery O2 Flow Rate FiO2 07/16/25 10:12 98.4 91 16 126/75 97 Room Air 0 DX & DISP Disposition: Discharge Departure Impression: Primary Impression: Sinusitis Condition: Stable Scripts Fluticasone Propionate (Flonase Nasal [place]) 50 Mcg/Actuation [place] 2 SPRAY NS DAILY, #16 GM 0 Refills Prov: HERB NUNEZ MD 07/16/25 Amoxicillin/Potassium Clav (Amox Tr-K Clv 875-125 mg Tab) 875 Mg-125 Mg Tablet 1 TAB PO BID for 10 Days, #20 TAB 0 Refills Prov: HERB NUNEZ MD 07/16/25 Additional Instructions: FOLLOW-UP WITH PRIMARY CARE PROVIDER IN 1 TO 2 DAYS. TAKE MEDICATIONS DIRECTED HERE IN THE EMERGENCY ROOM. OKAY TO CONTINUE HOME MEDICATIONS UNLESS OTHERWISE DISCUSSED DURING YOUR VISIT IN THE EMERGENCY ROOM TODAY. RETURN TO YOUR NEAREST EMERGENCY ROOM IF SYMPTOMS WORSEN OR IF THERE IS NO IMPROVEMENT. CALL 911 IF YOU NEED IMMEDIATE ASSISTANCE. TAKE TYLENOL [id number] NEEDED AND IF NO CONTRAINDICATIONS ARE PRESENT. INCREASE ORAL HYDRATION. A WOUND CULTURE OR URINE CULTURE WAS ORDERED HERE IN THE EMERGENCY ROOM DEPARTMENT PLEASE FOLLOW-UP WITH PRIMARY CARE PROVIDER AND ADVISE THEM TO GET REPORTS FROM OUR FACILITY. IF YOU HAD ANY LUIS WRAP/SPLINTS THAT WERE APPLIED HERE, PLEASE DO NOT REMOVE THEM UNTIL YOU SEE YOUR PRIMARY CARE OR SPECIALTY. Referrals: Referrals: SELF,REFERRAL (PCP) PEYTON BOOKER MD Time of Disposition: 10:23 HERB NUNEZ MD Jul 16, 2025 10:24
== END 2025-07-16 10:20 | disposition home or self-care (01) ==
LOC: EDH 10:11
DX: J32.9 Chronic sinusitis, unspecified (principal); K21.9 Gastro-esophageal reflux disease without esophagitis; E66.9 Obesity, unspecified; Z88.5 Allergy status to narcotic agent; Z79.624 Long term (current) use of inhibitors of nucleotide synthesis; Z79.52 Long term (current) use of systemic steroids; Z87.42 Personal history of other diseases of the female genital tract; Z68.35 Body mass index [BMI] 35.0-35.9, adult
CPT/HCPCS: 99283